=== PATIENT | male | born 1940 | race Caucasian/White ===

== ENCOUNTER 2016-09-01 14:02 | Emergency (ER) | payer MEDICARE, BC ==
[2016-09-01] MEDS ORDERED: CLINDAMYCIN 900 MG in DEXTROSE 5% IN WATER 50 ML IVPB STA ×2 (14:54)
[2016-09-01 15:29] LABS: Basophils % (A) 0 %; CH 30.4; Eosinophils # (A) 0.1 k/uL (0-0.7); Eosinophils % (A) 2 %; HCT 36.9 % (39.0-53.0); HDW 2.41; HGB 11.9 gm/dL (13.0-17.5); Luc # (Auto) 0.11; Luc % (Auto) 2; Lymphocytes # (A) 0.6 k/uL (1.0-4.8); Lymphocytes % (A) 8 %; MCH 30.8 pg (25.0-35.0); MCHC 32.4 g/dL (31.0-37.0); MCV 95.1 fL (80.0-100.0); Mean Platelet Volume 7.1; Monocytes # (A) 0.5 k/uL (0-1.0); Monocytes % (A) 7 %; Neutrophils # (A) 5.3 k/uL (1.3-7.7); Neutrophils % (A) 81 %; RBC 3.88 m/uL (4.30-5.90); RDW 13.5 % (11.5-15.5); WBC 6.5 k/uL (3.8-10.6); WBC (Perox) 6.87
[2016-09-01 15:43] LABS: Calcium 9.2 mg/dL (8.4-10.2); Potassium 4.1 mmol/L (3.5-5.1); Total Bilirubin 0.7 mg/dL (0.2-1.3); Total Protein 6.3 g/dL (6.3-8.2)
[2016-09-01 15:47] LABS: INR 1.1 (<1.1); Partial Thromboplastin Time 27.2 sec (22.0-30.0); Prothrombin Time 10.8 sec (9.0-12.0)
[2016-09-01 15:54] LABS: Creatine Kinase 79 U/L (55-170)
[2016-09-01 16:06] LABS: Creatine Kinase MB 3.5 ng/mL (0.0-2.4); Troponin I <0.012 ng/mL (0.000-0.034)
--- NOTE | 2016-09-01 17:09 | US ---
EXAMINATION TYPE: US venous doppler duplex LE BI DATE OF EXAM: 09/01/2016 4:34 PM COMPARISON: NONE CLINICAL HISTORY: US. Bilateral Leg Swelling SIDE PERFORMED: Bilateral VESSELS IMAGED: External Iliac Vein (EIV) Common Femoral Vein Deep Femoral Vein Greater Saphenous Vein * Femoral Vein Popliteal Vein Small Saphenous Vein * Proximal Calf Veins (* superficial vessels) Right Leg: Negative for DVT Left Leg: Negative for DVT There is subcutaneous soft tissue edema noted posteriorly at the level of the knee and upper calf. IMPRESSION: No evidence of acute DVT within the bilateral lower extremities imaged from the groin to the upper ca lves.
[2016-09-01 17:43] VITALS: TEMP 97.9
--- NOTE | 2016-09-01 18:18 | XR ---
EXAMINATION TYPE: XR chest 2V DATE OF EXAM: 09/01/2016 6:01 PM COMPARISON: NONE HISTORY: Leg edema. Heart failure. TECHNIQUE: Frontal and lateral views of the chest are obtained. FINDINGS: There is no heart failure nor confluent pneumonic infiltrate. There are no hilar masses. H eart is top normal in size. Costophrenic angles are clear. There are chest leads. Bony thorax appears intact. There is mild osteopenia. IMPRESSION: No active cardiac pulmonary disease. There is probably some COPD. No heart failure.
--- NOTE | 2016-09-01 18:53 | ED ---
Extremity Problem HPI - General Chief complaint: Extremity Problem,Nontraumatic Stated complaint: Swollen legs. 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 He denies any chest pain or shortness of breath no pleuritic chest pain no fever no chills. Denies any headaches no neck stiffness no abdominal pain no frequency urgency dysuria - Related Data Home Medications Medication Instructions Recorded Confirmed Atenolol [Tenormin] 25 mg PO DAILY 09/01/16 09/01/16 Carbidopa-Levodopa 25-250 mg 1 tab PO TID 09/01/16 09/01/16 [Sinemet 25-250] Donepezil [Aricept] 10 mg PO BID 09/01/16 09/01/16 Furosemide [Lasix] 20 mg PO DAILY 09/01/16 09/01/16 Lisinopril-Hctz 10-12.5 mg 1 tab PO DAILY 09/01/16 09/01/16 [Zestoretic 10-12.5] Memantine [Namenda] 10 mg PO BID 09/01/16 09/01/16 Allergies Allergy/AdvReac Type Severity Reaction Status Date / Time No Known Allergies Allergy Unverified 09/01/16 14:43 Review of Systems ROS Statement: Those systems with pertinent positive or pertinent negative responses have been documented in the HPI. ROS Other: All systems not noted in ROS Statement are negative. Past Medical History Past Medical History: Atrial Fibrillation, Heart Failure, Dementia Additional Past Medical History / Comment(s): kim cardioversion History of Any Multi-Drug Resistant Organisms: None Reported Additional Past Surgical History / Comment(s): shoulder Past Psychological History: No Psychological Hx Reported Smoking Status: Former smoker Past Alcohol Use History: None Reported, Rare Past Drug Use History: None Reported General Exam Limitations: no limitations Course Vital Signs 09/01/16 09/01/16 09/01/16 14:10 14:51 16:00 Temperature 97.9 F Pulse Rate 52 L 65 Pulse Rate [ 48 L Bilateral Dorsalis Pedis] Pulse Rate [ 50 L Bilateral Posterior Tibial] Respiratory 18 20 Rate Blood Pressure 93/53 160/70 O2 Sat by Pulse 98 97 Oximetry 09/01/16 09/01/16 17:55 19:18 Temperature Pulse Rate 65 70 Pulse Rate [ Bilateral Dorsalis Pedis] Pulse Rate [ Bilateral Posterior Tibial] Respiratory 18 14 Rate Blood Pressure 167/79 126/58 O2 Sat by Pulse 99 Oximetry EKG is a sinus bradycardia ventricular rate is 49 HI interval is 19 he 4 QRS duration is 86 QT/QTc is 472/426 review of the this EKG does not reveal any ST elevation or ST depression, this EKG is not absolutely normal EKG unfortunately I don't have any old EKG to compare it with. Had a long discussion at 1900 with the patient's his son and daughter in law explained them that the he has a cellulitis of the right leg and worsening of arterial blockage arterial occlusion on the left side at 1935 arterial studies still pending I plan to admit patient under Dr. Howe's service and consult Dr. cooley at this point patient is not agreeable for inpatient care, his family is trying to convince him for inpatient care Medical Decision Making - Lab Data Result diagrams: 09/01/16 15:02 09/01/16 15:02 Lab Results 09/01/16 09/01/16 09/01/16 Range/Units 15:02 15:02 15:02 WBC 6.5 (3.8-10.6) k/uL RBC 3.88 L (4.30-5.90) m/uL Hgb 11.9 L (13.0-17.5) gm/dL Hct 36.9 L (39.0-53.0) % MCV 95.1 (80.0-100.0) fL MCH 30.8 (25.0-35.0) pg MCHC 32.4 (31.0-37.0) g/dL RDW 13.5 (11.5-15.5) % Plt Count 227 (150-450) k/uL Neutrophils % 81 % Lymphocytes % 8 % Monocytes % 7 % Eosinophils % 2 % Basophils % 0 % Neutrophils # 5.3 (1.3-7.7) k/uL Lymphocytes # 0.6 L (1.0-4.8) k/uL Monocytes # 0.5 (0-1.0) k/uL Eosinophils # 0.1 (0-0.7) k/uL Basophils # 0.0 (0-0.2) k/uL PT (9.0-12.0) sec INR (<1.1) APTT (22.0-30.0) sec D-Dimer (<0.60) mg/L FEU Sodium 146 H (137-145) mmol/L Potassium 4.1 (3.5-5.1) mmol/L Chloride 103 (98-107) mmol/L Carbon Dioxide 30 (22-30) mmol/L Anion Gap 13 mmol/L BUN 41 H (9-20) mg/dL Creatinine 1.40 H (0.66-1.25) mg/dL Est GFR (MDRD) Af Amer 60 (>60 ml/min/1.73 sqM) Est GFR (MDRD) Non-Af 49 (>60 ml/min/1.73 sqM) Glucose 95 (74-99) mg/dL Calcium 9.2 (8.4-10.2) mg/dL Total Bilirubin 0.7 (0.2-1.3) mg/dL AST 20 (17-59) U/L ALT 22 (21-72) U/L Alkaline Phosphatase 67 (38-126) U/L Total Creatine Kinase 79 (55-170) U/L CK-MB (CK-2) 3.5 H* (0.0-2.4) ng/mL CK-MB (CK-2) Rel Index 4.4 Troponin I <0.012 (0.000-0.034) ng/mL Total Protein 6.3 (6.3-8.2) g/dL Albumin 4.2 (3.5-5.0) g/dL 09/01/16 Range/Units 15:02 WBC (3.8-10.6) k/uL RBC (4.30-5.90) m/uL Hgb (13.0-17.5) gm/dL Hct (39.0-53.0) % MCV (80.0-100.0) fL MCH (25.0-35.0) pg MCHC (31.0-37.0) g/dL RDW (11.5-15.5) % Plt Count (150-450) k/uL Neutrophils % % Lymphocytes % % Monocytes % % Eosinophils % % Basophils % % Neutrophils # (1.3-7.7) k/uL Lymphocytes # (1.0-4.8) k/uL Monocytes # (0-1.0) k/uL Eosinophils # (0-0.7) k/uL Basophils # (0-0.2) k/uL PT 10.8 (9.0-12.0) sec INR 1.1 (<1.1) APTT 27.2 (22.0-30.0) sec D-Dimer 0.20 (<0.60) mg/L FEU Sodium (137-145) mmol/L Potassium (3.5-5.1) mmol/L Chloride (98-107) mmol/L Carbon Dioxide (22-30) mmol/L Anion Gap mmol/L BUN (9-20) mg/dL Creatinine (0.66-1.25) mg/dL Est GFR (MDRD) Af Amer (>60 ml/min/1.73 sqM) Est GFR (MDRD) Non-Af (>60 ml/min/1.73 sqM) Glucose (74-99) mg/dL Calcium (8.4-10.2) mg/dL Total Bilirubin (0.2-1.3) mg/dL AST (17-59) U/L ALT (21-72) U/L Alkaline Phosphatase (38-126) U/L Total Creatine Kinase (55-170) U/L CK-MB (CK-2) (0.0-2.4) ng/mL CK-MB (CK-2) Rel Index Troponin I (0.000-0.034) ng/mL Total Protein (6.3-8.2) g/dL Albumin (3.5-5.0) g/dL Disposition Clinical Impression: Pedal edema, Cellulitis, leg, Peripheral vascular disease Disposition: ADMITTED IP TO THIS HOSP Condition: Fair Referrals: Opal Duncan MD [Primary Care Provider] - 1-2 days
[2016-09-01] MEDS ORDERED: LORazepam 1 MG TAB PO STA (19:11)
[2016-09-01 19:19] VITALS: BP 126/58; PULSE 70; RESP 14
[2016-09-01] MEDS ORDERED: NALOXONE 0.4 MG/ML 1 ML VIAL IV PRN (19:36)
[2016-09-01] MEDS ORDERED: ONDANSETRON 4 MG/2 ML VIAL IVP PRN (19:36)
[2016-09-01] MEDS ORDERED: ACETAMINOPHEN TAB 325 MG TAB PO PRN (19:36)
--- NOTE | 2016-09-07 10:44 | P.ARTDOP ---
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 Doppler waveforms: Multiphasic bilaterally throughout. Pulse volume recording: []. Pressure gradients: None noted. Ankle-brachial indices: Greater than 1 bilaterally. Toe pressures: [] on the right, [] on the left Impression: Limited but otherwise normal study.
== END 2016-09-01 20:16 | disposition other institution (70) ==
LOC: EC 14:02
DX: L03.115 Cellulitis of right lower limb (principal); I73.9 Peripheral vascular disease, unspecified; I50.9 Heart failure, unspecified; F03.90 Unspecified dementia, unspecified severity, without behavioral disturbance, psychotic disturbance, mood disturbance, and anxiety; I48.91 Unspecified atrial fibrillation; G20 Parkinson's disease; Z79.899 Other long term (current) drug therapy; Z87.891 Personal history of nicotine dependence
CPT/HCPCS: 36415; 71020; 80053; 82550; 82553; 84484; 85025; 85379; 85610; 85730; 87040; 93005; 93923; 93965; 93970; 96365; 96366; 99284

== ENCOUNTER 2016-09-28 17:02 | Emergency (ER) | payer MEDICARE, BC ==
[2016-09-28 17:06] VITALS: TEMP 97.7
[2016-09-28] MEDS ORDERED: NITROGLYCERIN OINT 1 INCH/GM PACKET TOPICAL STA (17:07)
[2016-09-28] MEDS ORDERED: FUROSEMIDE 10 MG/ML 4 ML VIAL IV STA (17:07)
--- NOTE | 2016-09-28 17:11 | ED ---
General Adult HPI - General Stated complaint: hypertension Time Seen by Provider: 09/28/16 17:02 Source: patient, EMS, RN notes reviewed Mode of arrival: EMS - History of Present Illness Initial comments: Is a 75-year-old male who apparently has a history of edema who was taken off his Lasix at some point who was sent in here for evaluation because of high blood pressure and peripheral edema. He has no personal complaints of fevers chills nausea vomiting sweats chest pain or focal weakness who was apparently out shoveling snow yesterday. He does have Alzheimer's and Parkinson's disease and is a somewhat poor historian no other information available at this time. - Related Data Home Medications Medication Instructions Recorded Confirmed Atenolol [Tenormin] 25 mg PO BID 09/01/16 09/28/16 Carbidopa-Levodopa 25-250 mg 1 tab PO TID 09/01/16 09/28/16 [Sinemet 25-250] Furosemide [Lasix] 20 mg PO DAILY 09/01/16 09/28/16 Lisinopril-Hctz 10-12.5 mg 1 tab PO DAILY 09/01/16 09/28/16 [Zestoretic 10-12.5] Memantine [Namenda] 10 mg PO BID 09/01/16 09/28/16 Triamcinolone Acetonide 1 applic TOPICAL DAILY 09/28/16 09/28/16 [Triamcinolone Acetonide] Previous Rx's Medication Instructions Recorded Furosemide [Lasix] 40 mg PO DAILY #7 tablet 09/28/16 Allergies Allergy/AdvReac Type Severity Reaction Status Date / Time No Known Allergies Allergy Verified 09/28/16 18:27 Review of Systems ROS Statement: Those systems with pertinent positive or pertinent negative responses have been documented in the HPI. ROS Other: All systems not noted in ROS Statement are negative. Limitations: ROS unobtainable due to patients medical condition Past Medical History Past Medical History: Atrial Fibrillation, Heart Failure, Dementia Additional Past Medical History / Comment(s): parkensons cardioversion. A/Ox2 is baseline mental status. History of Any Multi-Drug Resistant Organisms: None Reported Past Surgical History: No Surgical Hx Reported Additional Past Surgical History / Comment(s): shoulder Past Psychological History: No Psychological Hx Reported Smoking Status: Former smoker Past Alcohol Use History: None Reported, Rare Past Drug Use History: None Reported General Exam - General Exam Comments Initial Comments: This is a well-developed well-nourished awake alert male. General appearance: alert, in no apparent distress Head exam: Present: atraumatic, normocephalic, normal inspection Eye exam: Present: normal appearance, PERRL, EOMI. Absent: scleral icterus, conjunctival injection, periorbital swelling ENT exam: Present: normal exam, mucous membranes moist Neck exam: Present: normal inspection. Absent: tenderness, meningismus, lymphadenopathy Respiratory exam: Present: normal lung sounds bilaterally. Absent: respiratory distress, wheezes, rales, rhonchi, stridor Cardiovascular Exam: Present: regular rate, normal rhythm, normal heart sounds. Absent: systolic murmur, diastolic murmur, rubs, gallop, clicks GI/Abdominal exam: Present: soft, normal bowel sounds. Absent: distended, tenderness, guarding, rebound, rigid Extremities exam: Present: normal inspection, full ROM, normal capillary refill , pedal edema (Pila edema to the knees some localized erythema and some stasis changes.). Absent: tenderness, joint swelling, calf tenderness Back exam: Present: normal inspection Neurological exam: Present: alert, altered, CN II-XII intact. Absent: motor sensory deficit Psychiatric exam: Present: normal affect, normal mood Skin exam: Present: warm, dry, intact, normal color. Absent: rash Course Vital Signs 09/28/16 09/28/16 09/28/16 17:03 17:41 18:16 Temperature 97.7 F Pulse Rate 61 66 62 Respiratory 16 17 17 Rate Blood Pressure 229/107 219/101 222/102 O2 Sat by Pulse 98 99 94 L Oximetry 09/28/16 09/28/16 09/28/16 18:41 19:15 20:31 Temperature Pulse Rate 56 L 61 58 L Respiratory 17 17 20 Rate Blood Pressure 219/102 204/94 188/84 O2 Sat by Pulse 99 99 99 Oximetry EKG Findings - EKG Results: EKG: interpreted by TOMYD (Sinus bradycardia rate of 55. Interval to a 6 QRS duration 84 daily since QTC of 4:30/413 poor R-wave progression no acute ST-T wave elevation or depressions.) Medical Decision Making - Medical Decision Making Patient did respond to therapy and will be discharged he is to continue his current medications [Lasix again follow-up with his doctor return when necessary - Lab Data Result diagrams: 09/28/16 17:25 09/28/16 17:25 Lab Results 09/28/16 09/28/16 09/28/16 Range/Units 17:25 17:25 17:25 WBC 8.3 (3.8-10.6) k/uL RBC 4.04 L (4.30-5.90) m/uL Hgb 12.1 L (13.0-17.5) gm/dL Hct 38.2 L (39.0-53.0) % MCV 94.6 (80.0-100.0) fL MCH 30.0 (25.0-35.0) pg MCHC 31.7 (31.0-37.0) g/dL RDW 13.4 (11.5-15.5) % Plt Count 275 (150-450) k/uL Neutrophils % 77 % Lymphocytes % 13 % Monocytes % 6 % Eosinophils % 2 % Basophils % 1 % Neutrophils # 6.4 (1.3-7.7) k/uL Lymphocytes # 1.1 (1.0-4.8) k/uL Monocytes # 0.5 (0-1.0) k/uL Eosinophils # 0.2 (0-0.7) k/uL Basophils # 0.0 (0-0.2) k/uL PT (9.0-12.0) sec INR (<1.1) APTT (22.0-30.0) sec Sodium 144 (137-145) mmol/L Potassium 4.0 (3.5-5.1) mmol/L Chloride 104 (98-107) mmol/L Carbon Dioxide 29 (22-30) mmol/L Anion Gap 11 mmol/L BUN 34 H (9-20) mg/dL Creatinine 1.20 (0.66-1.25) mg/dL Est GFR (MDRD) Af Amer >60 (>60 ml/min/1.73 sqM) Est GFR (MDRD) Non-Af 59 (>60 ml/min/1.73 sqM) Glucose 94 (74-99) mg/dL Calcium 9.2 (8.4-10.2) mg/dL Magnesium 2.2 (1.6-2.3) mg/dL Total Bilirubin 0.8 (0.2-1.3) mg/dL AST 25 (17-59) U/L ALT 17 L (21-72) U/L Alkaline Phosphatase 68 (38-126) U/L Total Creatine Kinase 68 (55-170) U/L CK-MB (CK-2) 3.4 H* (0.0-2.4) ng/mL CK-MB (CK-2) Rel Index 5.0 Troponin I 0.013 (0.000-0.034) ng/mL NT-Pro-B Natriuret Pep pg/mL Total Protein 6.9 (6.3-8.2) g/dL Albumin 4.3 (3.5-5.0) g/dL 09/28/16 09/28/16 Range/Units 17:25 17:25 WBC (3.8-10.6) k/uL RBC (4.30-5.90) m/uL Hgb (13.0-17.5) gm/dL Hct (39.0-53.0) % MCV (80.0-100.0) fL MCH (25.0-35.0) pg MCHC (31.0-37.0) g/dL RDW (11.5-15.5) % Plt Count (150-450) k/uL Neutrophils % % Lymphocytes % % Monocytes % % Eosinophils % % Basophils % % Neutrophils # (1.3-7.7) k/uL Lymphocytes # (1.0-4.8) k/uL Monocytes # (0-1.0) k/uL Eosinophils # (0-0.7) k/uL Basophils # (0-0.2) k/uL PT 10.5 (9.0-12.0) sec INR 1.0 (<1.1) APTT 28.1 (22.0-30.0) sec Sodium (137-145) mmol/L Potassium (3.5-5.1) mmol/L Chloride (98-107) mmol/L Carbon Dioxide (22-30) mmol/L Anion Gap mmol/L BUN (9-20) mg/dL Creatinine (0.66-1.25) mg/dL Est GFR (MDRD) Af Amer (>60 ml/min/1.73 sqM) Est GFR (MDRD) Non-Af (>60 ml/min/1.73 sqM) Glucose (74-99) mg/dL Calcium (8.4-10.2) mg/dL Magnesium (1.6-2.3) mg/dL Total Bilirubin (0.2-1.3) mg/dL AST (17-59) U/L ALT (21-72) U/L Alkaline Phosphatase (38-126) U/L Total Creatine Kinase (55-170) U/L CK-MB (CK-2) (0.0-2.4) ng/mL CK-MB (CK-2) Rel Index Troponin I (0.000-0.034) ng/mL NT-Pro-B Natriuret Pep 1620 pg/mL Total Protein (6.3-8.2) g/dL Albumin (3.5-5.0) g/dL - Radiology Data Radiology results: report reviewed (Review the imaging shows no acute findings.) , image reviewed Disposition Clinical Impression: Hypertensive urgency, Congestive cardiac failure Disposition: HOME SELF-CARE Condition: Good Instructions: Hypertension (ED), Leg Edema (ED), Heart Failure (ED) Prescriptions: Furosemide [Lasix] 40 mg PO DAILY #7 tablet
[2016-09-28 17:35] LABS: Basophils % (A) 1 %; CH 30.1; Eosinophils # (A) 0.2 k/uL (0-0.7); Eosinophils % (A) 2 %; HCT 38.2 % (39.0-53.0); HDW 2.61; HGB 12.1 gm/dL (13.0-17.5); Luc # (Auto) 0.11; Luc % (Auto) 1; Lymphocytes # (A) 1.1 k/uL (1.0-4.8); Lymphocytes % (A) 13 %; MCHC 31.7 g/dL (31.0-37.0); MCV 94.6 fL (80.0-100.0); Mean Platelet Volume 7.1; Monocytes # (A) 0.5 k/uL (0-1.0); Monocytes % (A) 6 %; Neutrophils # (A) 6.4 k/uL (1.3-7.7); Neutrophils % (A) 77 %; RBC 4.04 m/uL (4.30-5.90); RDW 13.4 % (11.5-15.5); WBC 8.3 k/uL (3.8-10.6); WBC (Perox) 8.25
[2016-09-28 17:46] LABS: ALT 17 U/L (21-72); AST 25 U/L (17-59); Alkaline Phosphatase 68 U/L (38-126); Anion Gap 11 mmol/L; Blood Urea Nitrogen 34 mg/dL (9-20); Calcium 9.2 mg/dL (8.4-10.2); Carbon Dioxide 29 mmol/L (22-30); Chloride 104 mmol/L (98-107); Glucose 94 mg/dL (74-99); Magnesium 2.2 mg/dL (1.6-2.3); Non-African American GFR(MDRD) 59 (>60 ml/min/1.73 sqM); Sodium 144 mmol/L (137-145); Total Bilirubin 0.8 mg/dL (0.2-1.3); Total Protein 6.9 g/dL (6.3-8.2)
[2016-09-28 17:50] LABS: Partial Thromboplastin Time 28.1 sec (22.0-30.0); Prothrombin Time 10.5 sec (9.0-12.0)
[2016-09-28 18:15] LABS: Troponin I 0.013 ng/mL (0.000-0.034)
[2016-09-28 18:16] LABS: Creatine Kinase MB 3.4 ng/mL (0.0-2.4)
--- NOTE | 2016-09-28 18:18 | XR ---
EXAMINATION TYPE: XR chest 2V DATE OF EXAM: 09/28/2016 6:07 PM COMPARISON: 09/01/2016 HISTORY: Difficulty breathing TECHNIQUE: Frontal and lateral views of the chest are obtained. FINDINGS: There is no heart failure nor confluent pneumonic infiltrate. There are small calcified gr anulomata in the right lung. There are no hilar masses. Heart size is normal. There is no pleural eff usion. Bony thorax appears intact. IMPRESSION: No active cardiopulmonary disease. No change compared to old exam.
[2016-09-28] MEDS ORDERED: ENALAPRILAT 1.25 MG/ML 1 ML VIAL IVP STA (18:20)
[2016-09-28] MEDS ORDERED: hydrALAZINE HCL 20 MG/ML 1 ML VIAL IVP STA (19:40)
[2016-09-28 20:32] VITALS: BP 188/84; PULSE 58; RESP 20
== END 2016-09-28 21:53 | disposition home or self-care (01) ==
LOC: EC 17:02
DX: I11.0 Hypertensive heart disease with heart failure (principal); I50.9 Heart failure, unspecified; R60.0 Localized edema; I48.91 Unspecified atrial fibrillation; G30.9 Alzheimer's disease, unspecified; F02.80 Dementia in other diseases classified elsewhere, unspecified severity, without behavioral disturbance, psychotic disturbance, mood disturbance, and anxiety; G20 Parkinson's disease; Z87.891 Personal history of nicotine dependence; Z79.899 Other long term (current) drug therapy
CPT/HCPCS: 36415; 93005; 83880; 80053; 82550; 82553; 83735; 84484; 85025; 85610; 85730; 71020; 99284; 96374; 96375 ×2; J0360; J1940

== ENCOUNTER 2016-10-18 17:34 | Emergency (ER) | payer MEDICARE, BC ==
--- NOTE | 2016-10-18 18:50 | XR ---
EXAMINATION TYPE: XR Hip RT and AP Pelvis DATE OF EXAM: 10/18/2016 6:39 PM COMPARISON: NONE HISTORY: Right hip pain after a fall TECHNIQUE: A single AP view of the pelvis is obtained. Two views of the right hip are obtained. FINDINGS: The pelvic ring appears intact. Proximal right femur and hip joint appear intact. There is no evidence of a fracture. Sacroiliac joints are intact.. IMPRESSION: No acute abnormality of the pelvis and right hip. Mild bilateral acetabular spurring.
--- NOTE | 2016-10-18 18:59 | ED ---
Fall HPI - General Chief Complaint: Fall Stated Complaint: Fall/Hip Injury Time Seen by Provider: 10/18/16 18:18 Source: patient, EMS, RN notes reviewed Mode of arrival: EMS Limitations: no limitations - History of Present Illness Initial Comments: 75-year-old male presents emergency Department chief complaint fall. Patient fell on Monday in the toilet. Patient states he became dizzy and blacked out. Patient states that he's had right hip pain ever since states that he cannot weight-bear on the right side. Patient had no head injury. Patient states that his been having on and off dizziness over the last week. Patient denies any chest pain or shortness of breath. Denies any nausea vomiting. Patient denies any previous hip injury. Patient's had a history of hypertension, CHF, Parkinson's. - Related Data Home Medications Medication Instructions Recorded Confirmed Atenolol [Tenormin] 25 mg PO DAILY 09/01/16 10/18/16 Carbidopa-Levodopa 25-250 mg 1 tab PO TID 09/01/16 10/18/16 [Sinemet 25-250] Lisinopril-Hctz 10-12.5 mg 1 tab PO DAILY 09/01/16 10/18/16 [Zestoretic 10-12.5] Memantine [Namenda] 10 mg PO BID 09/01/16 10/18/16 Donepezil [Aricept] 10 mg PO DAILY 10/18/16 10/18/16 Furosemide [Lasix] 80 mg PO DAILY 10/18/16 10/18/16 Allergies Allergy/AdvReac Type Severity Reaction Status Date / Time No Known Allergies Allergy Verified 10/18/16 17:58 Review of Systems ROS Statement: Those systems with pertinent positive or pertinent negative responses have been documented in the HPI. ROS Other: All systems not noted in ROS Statement are negative. Past Medical History Past Medical History: Atrial Fibrillation, Heart Failure, Dementia Additional Past Medical History / Comment(s): parkensons cardioversion. A/Ox2 is baseline mental status. History of Any Multi-Drug Resistant Organisms: None Reported Past Surgical History: No Surgical Hx Reported Additional Past Surgical History / Comment(s): shoulder Past Psychological History: No Psychological Hx Reported Smoking Status: Former smoker Past Alcohol Use History: None Reported, Rare Past Drug Use History: None Reported General Exam Limitations: no limitations General appearance: alert, in no apparent distress Head exam: Present: atraumatic, normocephalic, normal inspection Respiratory exam: Present: normal lung sounds bilaterally. Absent: respiratory distress, wheezes, rales, rhonchi, stridor Cardiovascular Exam: Present: regular rate, normal rhythm, normal heart sounds. Absent: systolic murmur, diastolic murmur, rubs, gallop, clicks GI/Abdominal exam: Present: soft, normal bowel sounds. Absent: distended, tenderness, guarding, rebound, rigid Extremities exam: Present: other (Bleeding to the right hip pain with log rolling of the right leg there is multiple varicosities noted of the lower extremity below pulses are palpable bilateral +2 no shortening or rotation) Neurological exam: Present: alert, oriented X3, CN II-XII intact. Absent: motor sensory deficit, reflexes normal Course Vital Signs 10/18/16 17:40 Temperature 97.9 F Pulse Rate 51 L Respiratory 18 Rate Blood Pressure 145/67 O2 Sat by Pulse 100 Oximetry Medical Decision Making - Medical Decision Making 75-year-old male presented for fall. Patient is right acetabular fracture. Case discussed with Daniel Rucker secondary to acetabular fracture not handled by on-call orthopedics. Patient case was discussed with Daniel Rucker will accept transfer. - Lab Data Result diagrams: 10/18/16 18:53 10/18/16 18:53 Lab Results 10/18/16 10/18/16 10/18/16 Range/Units 18:53 18:53 18:53 WBC 9.5 (3.8-10.6) k/uL RBC 4.21 L (4.30-5.90) m/uL Hgb 12.9 L (13.0-17.5) gm/dL Hct 39.4 (39.0-53.0) % MCV 93.8 (80.0-100.0) fL MCH 30.8 (25.0-35.0) pg MCHC 32.8 (31.0-37.0) g/dL RDW 13.4 (11.5-15.5) % Plt Count 227 (150-450) k/uL Neutrophils % 82 % Lymphocytes % 8 % Monocytes % 7 % Eosinophils % 2 % Basophils % 0 % Neutrophils # 7.8 H (1.3-7.7) k/uL Lymphocytes # 0.8 L (1.0-4.8) k/uL Monocytes # 0.6 (0-1.0) k/uL Eosinophils # 0.1 (0-0.7) k/uL Basophils # 0.0 (0-0.2) k/uL PT 10.1 (9.0-12.0) sec INR 1.0 (<1.1) APTT 24.8 (22.0-30.0) sec Sodium 146 H (137-145) mmol/L Potassium 3.8 (3.5-5.1) mmol/L Chloride 97 L (98-107) mmol/L Carbon Dioxide 36 H (22-30) mmol/L Anion Gap 13 mmol/L BUN 88 H* (9-20) mg/dL Creatinine 2.48 H (0.66-1.25) mg/dL Est GFR (MDRD) Af Amer 31 (>60 ml/min/1.73 sqM) Est GFR (MDRD) Non-Af 26 (>60 ml/min/1.73 sqM) Glucose 107 H (74-99) mg/dL Calcium 9.7 (8.4-10.2) mg/dL Total Bilirubin 1.0 (0.2-1.3) mg/dL AST 20 (17-59) U/L ALT 12 L (21-72) U/L Alkaline Phosphatase 71 (38-126) U/L Troponin I (0.000-0.034) ng/mL Total Protein 7.3 (6.3-8.2) g/dL Albumin 4.4 (3.5-5.0) g/dL 10/18/16 Range/Units 18:53 WBC (3.8-10.6) k/uL RBC (4.30-5.90) m/uL Hgb (13.0-17.5) gm/dL Hct (39.0-53.0) % MCV (80.0-100.0) fL MCH (25.0-35.0) pg MCHC (31.0-37.0) g/dL RDW (11.5-15.5) % Plt Count (150-450) k/uL Neutrophils % % Lymphocytes % % Monocytes % % Eosinophils % % Basophils % % Neutrophils # (1.3-7.7) k/uL Lymphocytes # (1.0-4.8) k/uL Monocytes # (0-1.0) k/uL Eosinophils # (0-0.7) k/uL Basophils # (0-0.2) k/uL PT (9.0-12.0) sec INR (<1.1) APTT (22.0-30.0) sec Sodium (137-145) mmol/L Potassium (3.5-5.1) mmol/L Chloride (98-107) mmol/L Carbon Dioxide (22-30) mmol/L Anion Gap mmol/L BUN (9-20) mg/dL Creatinine (0.66-1.25) mg/dL Est GFR (MDRD) Af Amer (>60 ml/min/1.73 sqM) Est GFR (MDRD) Non-Af (>60 ml/min/1.73 sqM) Glucose (74-99) mg/dL Calcium (8.4-10.2) mg/dL Total Bilirubin (0.2-1.3) mg/dL AST (17-59) U/L ALT (21-72) U/L Alkaline Phosphatase (38-126) U/L Troponin I 0.034 (0.000-0.034) ng/mL Total Protein (6.3-8.2) g/dL Albumin (3.5-5.0) g/dL 10/18/16 20:04 EKG performed at 18:58 sinus bradycardia with a rate of 50, DC interval 180, QRS duration 84, QT/QTC 454/413 Disposition Clinical Impression: Fall, Right acetabular fracture, Fracture of right inferior pubic ramus, Dehydration, Acute renal injury Disposition: OTHER INSTITUTION NOT DEFINED Condition: Stable - Out of Hospital Transfer - Req. Specs Out of Hospital Transfer - Requested Specifics: Other Emergency Center ( Daniel Rucker)
[2016-10-18 19:01] LABS: Basophils % (A) 0 %; CH 30.8; CHCM 32.9; Eosinophils # (A) 0.1 k/uL (0-0.7); Eosinophils % (A) 2 %; HCT 39.4 % (39.0-53.0); HDW 2.26; HGB 12.9 gm/dL (13.0-17.5); Luc # (Auto) 0.13; Luc % (Auto) 1; Lymphocytes # (A) 0.8 k/uL (1.0-4.8); Lymphocytes % (A) 8 %; MCH 30.8 pg (25.0-35.0); MCHC 32.8 g/dL (31.0-37.0); MCV 93.8 fL (80.0-100.0); Mean Platelet Volume 8.3; Monocytes # (A) 0.6 k/uL (0-1.0); Monocytes % (A) 7 %; Neutrophils # (A) 7.8 k/uL (1.3-7.7); Neutrophils % (A) 82 %; RBC 4.21 m/uL (4.30-5.90); RDW 13.4 % (11.5-15.5); WBC 9.5 k/uL (3.8-10.6); WBC (Perox) 10.42
[2016-10-18 19:12] LABS: Calcium 9.7 mg/dL (8.4-10.2); Potassium 3.8 mmol/L (3.5-5.1); Total Protein 7.3 g/dL (6.3-8.2)
[2016-10-18 19:23] LABS: Partial Thromboplastin Time 24.8 sec (22.0-30.0); Prothrombin Time 10.1 sec (9.0-12.0)
--- NOTE | 2016-10-18 19:57 | CT ---
EXAMINATION TYPE: CT hip RT wo con DATE OF EXAM: 10/18/2016 7:41 PM COMPARISON: NONE HISTORY: Right sided hip pain post fall CT DLP: 528 mGycm Automated exposure control for dose reduction was used. FINDINGS: Multiple axial sections were obtained from the top of the iliac crest to the subtrochanteric right fe mur with no contrast. There is a nondisplaced hairline fracture of the posterior acetabular labrum. The proximal femur is i ntact. The sacroiliac joints appear normal. There is evidence of a nondisplaced fracture of the right inferior pubic ramus. The superior pubic ra mus is intact. IMPRESSION: NONDISPLACED POSTERIOR ACETABULAR LABRAL FRACTURE. NONDISPLACED RIGHT INFERIOR PUBIC RAMUS FRACTURE. NO EVIDENCE OF A FEMORAL FRACTURE. THERE IS NOTED A LARGE AMOUNT OF FECAL MATERIAL IN THE RECTUM CONSISTENT WITH CONSTIPATION.
[2016-10-18] MEDS ORDERED: HYDROcodone/APAP 5-325MG 1 EACH TAB PO STA (19:59)
[2016-10-18 20:29] VITALS: BP 197/85; PULSE 57; RESP 14; TEMP 96.8
== END 2016-10-18 20:54 | disposition short-term general hospital (02) ==
LOC: EC 17:34
DX: S32.591A Other specified fracture of right pubis, initial encounter for closed fracture (principal); S32.491A Other specified fracture of right acetabulum, initial encounter for closed fracture; S37.009A Unspecified injury of unspecified kidney, initial encounter; E86.0 Dehydration; I11.0 Hypertensive heart disease with heart failure; I50.9 Heart failure, unspecified; F03.90 Unspecified dementia, unspecified severity, without behavioral disturbance, psychotic disturbance, mood disturbance, and anxiety; G20 Parkinson's disease; I48.91 Unspecified atrial fibrillation; Z87.891 Personal history of nicotine dependence; Z79.899 Other long term (current) drug therapy; W07.XXXA Fall from chair, initial encounter; Y92.89 Other specified places as the place of occurrence of the external cause
CPT/HCPCS: 36415; 73502; 80053; 84484; 85025; 85610; 85730; 93005; 99285

== ENCOUNTER 2016-12-12 14:56 | Inpatient (IN) | payer MEDICARE, BC ==
[2016-12-12] MEDS ORDERED: FUROSEMIDE 10 MG/ML 4 ML VIAL IV STA (15:52)
--- NOTE | 2016-12-12 15:55 | ED ---
General Adult HPI - General Chief complaint: Extremity Problem,Nontraumatic Stated complaint: Swelling/Legs Time Seen by Provider: 12/12/16 15:09 Source: patient, RN notes reviewed Mode of arrival: EMS Limitations: altered mental status - History of Present Illness Initial comments: Patient is a pleasant 76-year-old male presenting to the emergency department with leg edema. Patient is a poor historian and does not offer much more information. Patient denies dyspnea. Patient denies chest pain. Unclear patient has a history of similar symptoms previously. Patient reportedly saw his primary care physician earlier today and was sent to the emergency - Related Data Home Medications Medication Instructions Recorded Confirmed Atenolol [Tenormin] 25 mg PO DAILY 09/01/16 12/12/16 Lisinopril-Hctz 10-12.5 mg 1 tab PO DAILY 09/01/16 12/12/16 [Zestoretic 10-12.5] Memantine [Namenda] 10 mg PO BID 09/01/16 12/12/16 Donepezil [Aricept] 10 mg PO HS 10/18/16 12/12/16 Furosemide [Lasix] 20 mg PO DAILY 12/12/16 12/12/16 Allergies Allergy/AdvReac Type Severity Reaction Status Date / Time No Known Allergies Allergy Verified 12/12/16 15:45 Review of Systems ROS Statement: Those systems with pertinent positive or pertinent negative responses have been documented in the HPI. ROS Other: All systems not noted in ROS Statement are negative. Constitutional: Denies: fever Eyes: Denies: eye pain ENT: Denies: ear pain Respiratory: Denies: cough, dyspnea Cardiovascular: Reports: edema. Denies: chest pain Endocrine: Denies: fatigue Gastrointestinal: Denies: abdominal pain Genitourinary: Denies: dysuria Musculoskeletal: Denies: back pain Skin: Denies: rash Neurological: Denies: headache Past Medical History Past Medical History: Atrial Fibrillation, Heart Failure, Dementia Additional Past Medical History / Comment(s): parkensons cardioversion. A/Ox2 is baseline mental status. History of Any Multi-Drug Resistant Organisms: None Reported Past Surgical History: No Surgical Hx Reported Additional Past Surgical History / Comment(s): shoulder Past Psychological History: No Psychological Hx Reported Smoking Status: Former smoker Past Alcohol Use History: None Reported, Rare Past Drug Use History: None Reported General Exam Limitations: no limitations General appearance: alert, in no apparent distress Head exam: Present: atraumatic Eye exam: Present: normal appearance, PERRL ENT exam: Present: normal oropharynx Neck exam: Present: normal inspection Respiratory exam: Present: normal lung sounds bilaterally Cardiovascular Exam: Present: bradycardia, normal heart sounds GI/Abdominal exam: Present: soft. Absent: tenderness Extremities exam: Present: normal capillary refill, pedal edema (Bilateral +3. There is dark erythematous discoloration that is blanchable right greater than left foot. Cap refill less than 2 seconds.). Absent: calf tenderness Back exam: Present: normal inspection Neurological exam: Present: alert Psychiatric exam: Present: normal affect, normal mood Skin exam: Absent: rash Course Vital Signs 12/12/16 12/12/16 12/12/16 14:59 16:13 16:40 Temperature 97.5 F L Pulse Rate 56 L 78 57 L Respiratory 18 18 Rate Blood Pressure 203/83 109/59 200/87 O2 Sat by Pulse 99 96 Oximetry EKG Findings - EKG Comments: EKG Findings:: Sinus rhythm at 50. QRS 80. QT 444. QTC 404. Normal axis. Septal Q waves. No acute ST change. Medical Decision Making - Lab Data Result diagrams: 12/12/16 15:31 12/12/16 15:31 Lab Results 12/12/16 12/12/16 12/12/16 Range/Units 15:31 15:31 15:31 WBC 5.9 (3.8-10.6) k/uL RBC 3.75 L (4.30-5.90) m/uL Hgb 10.9 L (13.0-17.5) gm/dL Hct 35.5 L (39.0-53.0) % MCV 94.7 (80.0-100.0) fL MCH 29.1 (25.0-35.0) pg MCHC 30.7 L (31.0-37.0) g/dL RDW 14.9 (11.5-15.5) % Plt Count 207 (150-450) k/uL Neutrophils % 71 % Lymphocytes % 18 % Monocytes % 7 % Eosinophils % 1 % Basophils % 1 % Neutrophils # 4.2 (1.3-7.7) k/uL Lymphocytes # 1.1 (1.0-4.8) k/uL Monocytes # 0.4 (0-1.0) k/uL Eosinophils # 0.1 (0-0.7) k/uL Basophils # 0.0 (0-0.2) k/uL Hypochromasia Slight PT (9.0-12.0) sec INR (<1.1) APTT (22.0-30.0) sec Sodium 148 H (137-145) mmol/L Potassium 4.0 (3.5-5.1) mmol/L Chloride 108 H (98-107) mmol/L Carbon Dioxide 32 H (22-30) mmol/L Anion Gap 8 mmol/L BUN 38 H (9-20) mg/dL Creatinine 1.30 H (0.66-1.25) mg/dL Est GFR (MDRD) Af Amer >60 (>60 ml/min/1.73 sqM) Est GFR (MDRD) Non-Af 54 (>60 ml/min/1.73 sqM) Glucose 86 (74-99) mg/dL Calcium 8.9 (8.4-10.2) mg/dL Total Bilirubin 0.4 (0.2-1.3) mg/dL AST 16 L (17-59) U/L ALT 18 L (21-72) U/L Alkaline Phosphatase 100 (38-126) U/L Total Creatine Kinase 39 L (55-170) U/L CK-MB (CK-2) 2.2 (0.0-2.4) ng/mL CK-MB (CK-2) Rel Index 5.6 Troponin I <0.012 (0.000-0.034) ng/mL NT-Pro-B Natriuret Pep pg/mL Total Protein 6.2 L (6.3-8.2) g/dL Albumin 3.6 (3.5-5.0) g/dL 12/12/16 12/12/16 Range/Units 15:31 15:31 WBC (3.8-10.6) k/uL RBC (4.30-5.90) m/uL Hgb (13.0-17.5) gm/dL Hct (39.0-53.0) % MCV (80.0-100.0) fL MCH (25.0-35.0) pg MCHC (31.0-37.0) g/dL RDW (11.5-15.5) % Plt Count (150-450) k/uL Neutrophils % % Lymphocytes % % Monocytes % % Eosinophils % % Basophils % % Neutrophils # (1.3-7.7) k/uL Lymphocytes # (1.0-4.8) k/uL Monocytes # (0-1.0) k/uL Eosinophils # (0-0.7) k/uL Basophils # (0-0.2) k/uL Hypochromasia PT 10.0 (9.0-12.0) sec INR 1.0 (<1.1) APTT 24.7 (22.0-30.0) sec Sodium (137-145) mmol/L Potassium (3.5-5.1) mmol/L Chloride (98-107) mmol/L Carbon Dioxide (22-30) mmol/L Anion Gap mmol/L BUN (9-20) mg/dL Creatinine (0.66-1.25) mg/dL Est GFR (MDRD) Af Amer (>60 ml/min/1.73 sqM) Est GFR (MDRD) Non-Af (>60 ml/min/1.73 sqM) Glucose (74-99) mg/dL Calcium (8.4-10.2) mg/dL Total Bilirubin (0.2-1.3) mg/dL AST (17-59) U/L ALT (21-72) U/L Alkaline Phosphatase (38-126) U/L Total Creatine Kinase (55-170) U/L CK-MB (CK-2) (0.0-2.4) ng/mL CK-MB (CK-2) Rel Index Troponin I (0.000-0.034) ng/mL NT-Pro-B Natriuret Pep 1560 pg/mL Total Protein (6.3-8.2) g/dL Albumin (3.5-5.0) g/dL Disposition Clinical Impression: Leg edema, Right-sided heart failure Disposition: ADMITTED IP TO THIS HOSP
[2016-12-12 16:12] LABS: Basophils % (A) 1 %; CH 29.1; CHCM 30.9; Eosinophils # (A) 0.1 k/uL (0-0.7); Eosinophils % (A) 1 %; HCT 35.5 % (39.0-53.0); HDW 2.38; HGB 10.9 gm/dL (13.0-17.5); Hypochromasia Slight; Luc # (Auto) 0.11; Luc % (Auto) 2; Lymphocytes # (A) 1.1 k/uL (1.0-4.8); Lymphocytes % (A) 18 %; MCH 29.1 pg (25.0-35.0); MCHC 30.7 g/dL (31.0-37.0); MCV 94.7 fL (80.0-100.0); Mean Platelet Volume 7.3; Monocytes # (A) 0.4 k/uL (0-1.0); Monocytes % (A) 7 %; Neutrophils # (A) 4.2 k/uL (1.3-7.7); Neutrophils % (A) 71 %; RBC 3.75 m/uL (4.30-5.90); RDW 14.9 % (11.5-15.5); WBC 5.9 k/uL (3.8-10.6); WBC (Perox) 6.33
--- NOTE | 2016-12-12 16:12 | XR ---
EXAMINATION TYPE: XR chest 2V DATE OF EXAM: 12/12/2016 4:04 PM COMPARISON: NONE INDICATION: Difficulty breathing TECHNIQUE: Single frontal view of the chest is obtained. FINDINGS: The heart size is normal. The pulmonary vasculature is normal. Small posterior pleural effusion is likely present. IMPRESSION: 1. Small posterior pleural effusion
[2016-12-12 16:17] LABS: ALT 18 U/L (21-72); AST 16 U/L (17-59); Alkaline Phosphatase 100 U/L (38-126); Anion Gap 8 mmol/L; Blood Urea Nitrogen 38 mg/dL (9-20); Calcium 8.9 mg/dL (8.4-10.2); Carbon Dioxide 32 mmol/L (22-30); Chloride 108 mmol/L (98-107); Glucose 86 mg/dL (74-99); Non-African American GFR(MDRD) 54 (>60 ml/min/1.73 sqM); Sodium 148 mmol/L (137-145); Total Bilirubin 0.4 mg/dL (0.2-1.3); Total Protein 6.2 g/dL (6.3-8.2)
[2016-12-12 16:24] LABS: Partial Thromboplastin Time 24.7 sec (22.0-30.0)
[2016-12-12 16:33] LABS: Creatine Kinase 39 U/L (55-170)
[2016-12-12] MEDS ORDERED: NITROGLYCERIN OINT 1 INCH/GM PACKET TOPICAL STA ×2 (16:42→18:09)
[2016-12-12 16:45] LABS: Creatine Kinase MB 2.2 ng/mL (0.0-2.4); Troponin I <0.012 ng/mL (0.000-0.034)
[2016-12-12] MEDS ORDERED: ASPIRIN 325 MG TAB PO STA (17:14)
[2016-12-12] MEDS ORDERED: HYDROcodone/APAP 5-325MG 1 EACH TAB PO STA (17:31)
[2016-12-12] MEDS: NITROGLYCERIN OINT 1 INCH/GM PACKET TOPICAL SCH (21:01)
[2016-12-12] MEDS: MEMANTINE 10 MG TAB PO SCH (21:02)
[2016-12-12] MEDS: DONEPEZIL 10 MG TAB PO SCH (21:02)
[2016-12-12] MEDS: FUROSEMIDE 10 MG/ML 4 ML VIAL IV SCH (23:52)
[2016-12-13] MEDS: FUROSEMIDE 10 MG/ML 4 ML VIAL IV SCH ×2 (08:38→15:51)
[2016-12-13] MEDS: NITROGLYCERIN OINT 1 INCH/GM PACKET TOPICAL SCH (08:39)
[2016-12-13] MEDS: MEMANTINE 10 MG TAB PO SCH ×2 (08:39→21:37)
[2016-12-13] MEDS: ATENOLOL 25 MG TAB PO SCH (08:39)
[2016-12-13] MEDS: LISINOPRIL-HCTZ 10-12.5 MG 1 EACH TAB PO SCH (08:39)
[2016-12-13] MEDS ORDERED: ASPIRIN 325 MG TAB PO SCH (09:00)
--- NOTE | 2016-12-13 11:35 | P.CRDCN ---
History of Present Illness Consult date: 12/13/16 Requesting physician: Heide Mcgrath Consult reason: congestive heart failure Chief complaint: Leg edema History of present illness: This is a 76-year-old gentleman with history of hypertension, paroxysmal atrial fibrillation, dementia, Parkinson's, who presents to the hospital with symptoms of bilateral leg swelling. Patient does provide somewhat of a history, however most of the history was extracted from the medical record. Patient denies any symptoms of shortness of breath, lying flat at the time of my examination in no acute distress. He denies any chest pain, no palpitations. EKG on admission showed a sinus bradycardia with no acute changes. Chest x-ray reveals a small posterior pleural effusion. Upon review of prior visits, it appears that the patient had a venous Doppler study performed in August of this year which was negative for any DVT. He was noted at that time to have lower extremity edema. He also had an echocardiogram with Doppler study performed in April of last year which revealed an ejection fraction of 55-60%. Laboratory data, hemoglobin 10.9, platelet count 207, potassium 4.0, BUN 38, creatinine 1.3. Troponins 0.012, 0.013, 0.034. BNP level 1560. Blood pressure on arrival to emergency room 203/83. Blood pressure this morning 190/90. The patient was initiated on IV Lasix in the emergency room, his weight today is down 2 kg from admission. Continues to have 1+ bilateral peripheral edema, significant redness with decreased pulse noted in the right foot. Past Medical History Past Medical History: Atrial Fibrillation, Heart Failure, Dementia Additional Past Medical History / Comment(s): parkinsons cardioversion. A/Ox2 is baseline mental status. History of Any Multi-Drug Resistant Organisms: None Reported Past Surgical History: No Surgical Hx Reported Additional Past Surgical History / Comment(s): shoulder Past Anesthesia/Blood Transfusion Reactions: No Reported Reaction Past Psychological History: No Psychological Hx Reported Smoking Status: Former smoker Past Alcohol Use History: None Reported, Rare Past Drug Use History: None Reported Medications and Allergies Home Medications Medication Instructions Recorded Confirmed Type Atenolol [Tenormin] 25 mg PO DAILY 09/01/16 12/12/16 History Lisinopril-Hctz 10-12.5 mg 1 tab PO DAILY 09/01/16 12/12/16 History [Zestoretic 10-12.5] Memantine [Namenda] 10 mg PO BID 09/01/16 12/12/16 History Donepezil [Aricept] 10 mg PO HS 10/18/16 12/12/16 History Furosemide [Lasix] 20 mg PO DAILY 12/12/16 12/12/16 History Allergies Allergy/AdvReac Type Severity Reaction Status Date / Time No Known Allergies Allergy Verified 12/12/16 15:45 Physical Exam Vitals: Vital Signs Temp Pulse Pulse Resp BP BP Pulse Ox 12/13/16 08:00 60 18 12/13/16 07:56 98 F 60 18 190/92 99 12/13/16 03:48 96.9 F L 54 L 18 180/94 100 12/13/16 00:00 96.9 F L 59 L 18 170/79 98 12/12/16 20:00 96.9 F L 55 L 18 189/93 100 12/12/16 18:59 97.2 F L 62 18 177/88 97 12/12/16 18:38 60 182/90 12/12/16 18:34 96.9 F L 55 L 18 189/93 100 12/12/16 17:49 97.2 F L 61 18 235/98 100 12/12/16 17:19 84 200/91 Intake and Output 12/12/16 12/13/16 12/13/16 22:59 06:59 14:59 Intake Total 150 120 Balance 150 120 Intake: Oral 150 120 Other: Voiding Method Incontinent Incontinent Incontinent # Voids 1 1 Weight 71.214 kg 69 kg PHYSICAL EXAMINATION: HEENT: Head is atraumatic, normocephalic. Pupils equal, round. Neck is supple. There is no elevated jugular venous pressure. HEART EXAMINATION: S1 and S2 irregularly irregular CHEST EXAMINATION: Lungs are clear with diminished air entry to bilateral bases. ABDOMEN: Soft, nontender. Bowel sounds are heard. No organomegaly noted. EXTREMITIES:[ 1+ peripheral pulses to the left lower extremity with 1+ peripheral edema, faint pulses to the right lower extremity with evidence of redness to the right foot. NEUROLOGIC patient is awake, alert mildly confused. . Results 12/12/16 15:31 12/12/16 15:31 Cardiac Enzymes 12/12/16 12/13/16 Range/Units 21:05 06:41 Troponin I 0.013 0.034 (0.000-0.034) ng/mL Current Medications Generic Name Dose Route Start Last Admin Trade Name Lelo PRN Reason Stop Dose Admin Aspirin 325 mg 12/13/16 09:00 12/13/16 08:39 Aspirin PO 325 mg DAILY JASWANT Administration Atenolol 25 mg 12/13/16 09:00 12/13/16 08:39 Tenormin PO 25 mg DAILY JASWANT Administration Donepezil HCl 10 mg 12/12/16 21:00 12/12/16 21:02 Aricept PO 10 mg HS JASWANT Administration Furosemide 40 mg 12/13/16 00:00 12/13/16 08:38 Lasix IV 40 mg Q8HR JASWANT Administration Lisinopril/HCTZ 1 each 12/13/16 09:00 12/13/16 08:39 Zestoretic 10-12.5 PO 1 each DAILY JASWANT Administration Memantine 10 mg 12/12/16 21:00 12/13/16 08:39 Namenda PO 10 mg BID JASWANT Administration Sodium Chloride 10 ml 12/12/16 21:00 12/13/16 08:39 Saline Flush IV 10 ml BID JASWANT Administration Intake and Output 12/12/16 12/13/16 12/13/16 22:59 06:59 14:59 Intake Total 150 120 Balance 150 120 Intake: Oral 150 120 Other: Voiding Method Incontinent Incontinent Incontinent # Voids 1 1 Weight 71.214 kg 69 kg EKG Interpretations (text) EKG shows sinus bradycardia. Assessment and Plan Plan: Assessment and plan #1 symptoms of bilateral lower leg swelling with evidence of mild congestive cardiac failure, likely diastolic in nature. Echo performed April last year revealed normal left ventricular systolic function. BNP level 1560. Currently on IV Lasix. #2 uncontrolled hypertension #3 dementia #4 paroxysmal atrial fibrillation with prior cardioversion, not on anticoagulation. #5 Parkinson's Plan We will request a repeat echocardiogram with Doppler study. Add Norvasc to the patient's medication regime for more optimal blood pressure control. We will continue to monitor for any atrial fibrillation, if we do note some atrial fibrillation, patient will require anticoagulation for stroke prevention. Continue IV Lasix. Recommend a vascular consult. Further recommendations to follow. DNP note has been reviewed, I agree with a documented findings and plan of care. Patient was seen and examined.
--- NOTE | 2016-12-13 13:11 | P.GSCN ---
History of Present Illness History of present illness: 76 old white male, patient came to the emergency room with history of bilateral leg swelling, patient has history of congestive heart failure I was consulted for vascular evaluation there was some concern about the right foot there is noted. Some congestion and cyanosis of the toes on the right foot there is also some swelling of the left lower extremity patient had a ultrasound of the leg in August which was negative for DVT Medical history history of atrial fibrillation, Parkinson disease, history of dementia, history of shortness of breath when laying flat is no history of any pain to the extremity Neck examination neck is supple no bruit appreciated Chest clear auscultation Abdomen soft nontender Vascular examination brachial radial pulses are palpable bilateral femorals are palpable bilateral, right popliteal is palpable, patient has a Doppler signal of the anterior tibial posterior tibial on the right foot and also on the left foot distal dorsal pedis pulse by Doppler no ischemic ulceration noted patient has some cyanosis of the right foot with some Brown induration Impression is history of dementia Parkinson's will history of atrial fibrillation at this point patient has some chronic peripheral vascular disease involving below the knee bilateral patient has no rest pain or tissue loss I will discuss with the and the family for further management we'll follow with you Past Medical History Past Medical History: Atrial Fibrillation, Heart Failure, Dementia Additional Past Medical History / Comment(s): parkinsons cardioversion. A/Ox2 is baseline mental status. History of Any Multi-Drug Resistant Organisms: None Reported Past Surgical History: No Surgical Hx Reported Additional Past Surgical History / Comment(s): shoulder Past Anesthesia/Blood Transfusion Reactions: No Reported Reaction Past Psychological History: No Psychological Hx Reported Smoking Status: Former smoker Past Alcohol Use History: None Reported, Rare Past Drug Use History: None Reported Medications and Allergies Home Medications Medication Instructions Recorded Confirmed Type Atenolol [Tenormin] 25 mg PO DAILY 09/01/16 12/12/16 History Lisinopril-Hctz 10-12.5 mg 1 tab PO DAILY 09/01/16 12/12/16 History [Zestoretic 10-12.5] Memantine [Namenda] 10 mg PO BID 09/01/16 12/12/16 History Donepezil [Aricept] 10 mg PO HS 10/18/16 12/12/16 History Furosemide [Lasix] 20 mg PO DAILY 12/12/16 12/12/16 History Allergies Allergy/AdvReac Type Severity Reaction Status Date / Time No Known Allergies Allergy Verified 12/12/16 15:45 Surgical - Exam Vital Signs Temp Pulse Resp BP Pulse Ox 97.5 F L 56 L 18 203/83 99 12/12/16 14:59 12/12/16 14:59 12/12/16 14:59 12/12/16 14:59 12/12/16 14:59 Results - Labs 12/12/16 15:31 12/12/16 15:31
[2016-12-13 14:55] VITALS: BMI 19.5
[2016-12-13] MEDS: amLODIPine 5 MG TAB PO SCH (15:51)
--- NOTE | 2016-12-13 21:05 | HP ---
DATE OF ADMISSION: 12/12/2016 CHIEF COMPLAINT: Bilateral leg swelling and weight gain. This 76-year-old gentleman with a past medical history of multiple medical problems, including atrial fibrillation, congestive heart failure, dementia, Parkinson's, history of gait dysfunction being followed by Dr. Duncan in the outpatient setting apparently living with her family. The patient is was noted to have increased shortness of breath as well as 6 pound weight gain. The patient came to [facility] and was admitted to the hospital for further evaluation and treatment. Chest x-ray showed evidence of congestive heart failure. NT-proBNP was 1560. There is no history of any fever, rigors or chills. No history of headache, loss of consciousness or seizures. The patient is minimally confused and unable to give a coherent history. Most of the history taken from my discussion with staff and review of the chart at this time. PAST MEDICAL HISTORY: History of congestive heart failure, history of atrial fibrillation. History of dementia, history of Parkinson's, history of gait dysfunction. Medications prior to admission include: 1. Namenda 10 mg p.o. b.i.d. 3. Lasix 20 mg p.o. daily. 4. Aricept 10 mg q.h.s. 5. Tenormin 25 mg p.o. daily. ALLERGIES: None. FAMILY HISTORY, SOCIAL HISTORY AND REVIEW OF SYSTEMS: Could not be taken at length. Per chart, previous history of smoking. Patient is conscious, but confused, oriented times one. Pulse 61, blood pressure 120/75, respiratory rate 16, temperature 97.6, pulse ox 100% on room air. HEENT: Conjunctivae normal. NECK: No jugular venous distention. No carotid bruit. No lymph node enlargement. CARDIOVASCULAR: S1, S2 muffled. RESPIRATORY: Breath sounds diminished at the bases. A few scattered rhonchi. No crackles. ABDOMEN: Soft, nontender. No mass palpable. Legs: No edema. No swelling. Nervous system: Higher functions as mentioned earlier. Mildly confused. Otherwise, tone is increased. Power is also reduced. No sensory abnormalities. Gait not tested. LYMPHATICS: No lymph nodes palpable in the neck, axillae or groin. SKIN: No ulcer, rash or bleeding. JOINTS: No active deforming arthropathy. LABORATORY DATA: WBC 5.9, hemoglobin 10.9. Sodium is 148. Creatinine is 1.30. Total protein 6.2. ASSESSMENT: 1. Shortness of breath, bilateral leg swelling, possible congestive heart failure exacerbation. 2. Anemia, normocytic anemia of chronic disease. 3. Hyponatremia. 4. Increased creatinine with chronic kidney disease stage III. 5. Severe protein calorie malnutrition, BMI of 19.5. 6. Atrial fibrillation, paroxysmal. 7. History of congestive heart failure. 8. History of dementia. 9. History of Parkinson's. 10. History of cardioversion. 11. Change in mental status, metabolic encephalopathy, multifactorial, present on admission. 12. FULL CODE. RECOMMENDATIONS AND DISCUSSION: This 76-year-old gentleman who presented with multiple complex medical issues, we will monitor the patient closely. Continue the current medications. Symptomatic treatment. Otherwise, cautious diuretics. Other than that, I would also recommend continue to monitor. Chest x-ray has been reviewed. EKG is noted. We will follow the patient closely with cardiology. Further recommendations to follow. A copy of dictation being forwarded to Dr. Duncan who is the primary physician. ABELINO
[2016-12-13] MEDS: DONEPEZIL 10 MG TAB PO SCH (21:37)
[2016-12-14] MEDS: FUROSEMIDE 10 MG/ML 4 ML VIAL IV SCH ×2 (00:16→13:21)
[2016-12-14 07:26] LABS: Calcium 8.9 mg/dL (8.4-10.2); Potassium 4.7 mmol/L (3.5-5.1)
[2016-12-14] MEDS: MEMANTINE 10 MG TAB PO SCH ×2 (09:42→20:13)
[2016-12-14] MEDS: ATENOLOL 25 MG TAB PO SCH (09:42)
[2016-12-14] MEDS: ASPIRIN 81 MG CHEW PO SCH (09:42)
[2016-12-14 09:50] LABS: Basophils % (A) 1 %; CH 29.7; CHCM 31.3; Eosinophils # (A) 0.1 k/uL (0-0.7); Eosinophils % (A) 1 %; HCT 39.6 % (39.0-53.0); HDW 2.21; HGB 12.3 gm/dL (13.0-17.5); Luc # (Auto) 0.14; Luc % (Auto) 2; Lymphocytes # (A) 1.6 k/uL (1.0-4.8); Lymphocytes % (A) 19 %; MCH 29.6 pg (25.0-35.0); MCV 95.4 fL (80.0-100.0); Monocytes # (A) 0.7 k/uL (0-1.0); Monocytes % (A) 8 %; Neutrophils % (A) 70 %; RBC 4.16 m/uL (4.30-5.90); RDW 15.3 % (11.5-15.5); WBC 8.5 k/uL (3.8-10.6); WBC (Perox) 8.51
--- NOTE | 2016-12-14 10:23 | ECHOF ---
Referral Reason:sob MEASUREMENTS -------- HEIGHT: 188.0 cm WEIGHT: 69.0 kg BP: 190/92 RVIDd: 3.7 cm (< 3.3) IVSd: 1.3 cm (0.6 - 1.1) LVIDd: 4.3 cm (3.9 - 5.3) LVPWd: 1.0 cm (0.6 - 1.1) IVSs: 1.5 cm LVIDs: 3.1 cm LVPWs: 1.3 cm Ao Diam: 3.5 cm (2.0 - 3.7) AV Cusp: 1.8 cm (1.5 - 2.6) LA Diam: 3.7 cm (2.7 - 3.8) MV EXCURSION: 11.453 mm (> 18.000) MV EF SLOPE: 49 mm/s (70 - 150) EPSS: 0.5 cm MV E Jann: 0.64 m/s MV DecT: 270 ms MV A Jann: 0.60 m/s MV E/A Ratio: 1.06 RAP: 5.00 mmHg RVSP: 25.39 mmHg FINDINGS -------- Sinus rhythm. This was a technically difficult study with suboptimal views. There is mild concentric left ventricular hypertrophy. Overall left ventricular systolic function is normal with, an EF between 55 - 60 %. The right ventricle is mildly enlarged. The left atrial size is normal. Aortic valve is trileaflet and is mildly thickened. Mild mitral annular calcification present. There is trace mitral regurgitation. Trace tricuspid regurgitation present. The right ventricular systolic pressure, as measured by Doppler, is 25.39mmHg. Trace/mild (physiologic) pulmonic regurgitation. The aortic root size is normal. Normal inferior vena cava with normal inspiratory collapse consistent with estimated right atrial pressure of 5 mmHg. Echo free space may represent effusion or a pericardial fat pad. CONCLUSIONS -------- 1. Sinus rhythm. 2. Trace tricuspid regurgitation present. 3. The right ventricular systolic pressure, as measured by Doppler, is 25.39mmHg. 4. Trace/mild (physiologic) pulmonic regurgitation. 5. The aortic root size is normal. 6. Normal inferior vena cava with normal inspiratory collapse consistent with estimated right atrial pressure of 5 mmHg. 7. Echo free space may represent effusion or a pericardial fat pad. 8. This was a technically difficult study with suboptimal views. 9. There is mild concentric left ventricular hypertrophy. 10. Overall left ventricular systolic function is normal with, an EF between 55 - 60 %. 11. The right ventricle is mildly enlarged. 12. The left atrial size is normal. 13. Aortic valve is trileaflet and is mildly thickened. 14. Mild mitral annular calcification present. 15. There is trace mitral regurgitation. EXECUTIVE ADMINISTRATIVE ASSISTANT: Cintia Medina RDCS
[2016-12-14 11:27] LABS: Appearance,Urine Clear (Clear); Bilirubin,Urine Negative (Negative); Glucose,Urine (UA) Negative (Negative); Ketones,Urine Negative (Negative); Leukocyte Esterase,Urine Negative (Negative); Nitrite,Urine Negative (Negative); Protein,Urine Negative (Negative); Specific Gravity,Urine 1.011 (1.001-1.035); UA Billing (MACRO vs. MICRO) CHEM; Urobilinogen,Urine <2.0 mg/dL (<2.0)
[2016-12-14] MEDS: amLODIPine 5 MG TAB PO SCH (11:35)
[2016-12-14] MEDS: LISINOPRIL-HCTZ 10-12.5 MG 1 EACH TAB PO SCH (11:35)
[2016-12-14] MEDS ORDERED: HYDROcodone/APAP 15 ML SOLUTION PO PRN (15:00)
[2016-12-14] MEDS: FUROSEMIDE 40 MG TAB PO SCH (15:27)
--- NOTE | 2016-12-14 15:36 | P.PN ---
Subjective Principal diagnosis: congestive heart failure this is a 76-year-old gentleman with history of hypertension, paroxysmal atrial fibrillation, dementia, Parkinson's, who presented to the hospital with bilateral leg swelling. He was initiated on IV Lasix for mild congestive cardiac failure,creatinine today 1.7, up from 1.3, patient diuresed well. He no longer has any leg swelling. He was also seen in consultation by Dr. Houser significant cyanosis and discoloration of the right foot. His recommendation at this time is just to continue maximal medical therapy.Echocardiogram with Doppler study was performed which revealed normal left ventricular systolic function.IV Lasix has been discontinued today, and patient has been put on oral diuretics. Objective - Vital Signs Vital signs: Vital Signs Temp 97.8 F 12/14/16 15:26 Pulse 60 12/14/16 15:26 Resp 16 12/14/16 15:26 BP 122/62 12/14/16 15:26 Pulse Ox 97 12/14/16 15:26 Intake & Output 12/13/16 12/14/16 12/14/16 18:59 06:59 18:59 Intake Total 600 300 480 Output Total 200 2 100 Balance 400 298 380 Weight 69 kg 66.5 kg Intake: Oral 600 300 480 Output: Urine 200 100 Stool 2 Other: Voiding Method Incontinent Diaper Diaper Incontinent Incontinent # Voids 3 2 2 - Exam PHYSICAL EXAMINATION: HEENT: [Head is atraumatic, normocephalic. Pupils equal, round. Neck is supple. There is no elevated jugular venous pressure.] HEART EXAMINATION: heart S1 and S2 normal CHEST EXAMINATION:[ Lungs are clear to auscultation and precussion. No chest wall tenderness is noted on palpation or with deep breathing.] ABDOMEN: [ Soft, nontender. Bowel sounds are heard. No organomegaly noted]. EXTREMITIES:[ 1+ peripheral pulses with no evidence of peripheral edema and no calf tenderness noted].Evidence of redness of the right foot NEUROLOGIC [patient is awake, alert and oriented -3.] . - Labs CBC & Chem 7: 12/14/16 08:47 12/14/16 06:29 Labs: Abnormal Lab Results - Last 24 Hours (Table) 12/14/16 12/14/16 Range/Units 06:29 08:47 RBC 4.16 L (4.30-5.90) m/uL Hgb 12.3 L (13.0-17.5) gm/dL BUN 53 H (9-20) mg/dL Creatinine 1.76 H (0.66-1.25) mg/dL Assessment and Plan Plan: Assessment and plan #1 symptoms of bilateral lower leg swelling with evidence of mild congestive cardiac failure, likely diastolic in nature. Echo performed April last year revealed normal left ventricular systolic function. #2 uncontrolled hypertension #3 dementia #4 paroxysmal atrial fibrillation with prior cardioversion, not on anticoagulation.normal sinus rhythm. #5 Parkinson's Plan from cardiology's perspective, we will discontinue the IV Lasix and start the patient on oral diuretics. Check lytes BUN and creatinine in the morning. DNP note has been reviewed, I agree with a documented findings and plan of care. Patient was seen and examined.
[2016-12-14] MEDS ORDERED: HEPARIN SODIUM,PORCINE 5,000 UNIT/ML 1 ML VIAL IV ONE (19:14)
[2016-12-14 19:54] LABS: Partial Thromboplastin Time 26.5 sec (22.0-30.0); Prothrombin Time 10.3 sec (9.0-12.0)
[2016-12-14] MEDS: HEPARIN SODIUM,PORCINE/D5W PMX 25,000 UNIT in DEXTROSE/WATER 1 500ML.BAG IV SCH (20:12)
[2016-12-14] MEDS: DONEPEZIL 10 MG TAB PO SCH (20:13)
--- NOTE | 2016-12-14 22:43 | PN ---
DATE OF SERVICE: 12/14/2016 This 76-year-old gentleman admitted with CHF acute exacerbation is being closely monitored. The patient is on diuretics. I have seen and evaluated the patient with the nurse practitioner. Please refer to the nurse practitioner's notes and impressions documented as scribe for further information. Closely follow with Cardiology. Further recommendations to follow.
[2016-12-15 05:56] LABS: Glucose,Whole Blood 82 mg/dL (75-99)
[2016-12-15 06:41] LABS: Basophils % (A) 1 %; CH 29.4; CHCM 31.6; Eosinophils # (A) 0.1 k/uL (0-0.7); Eosinophils % (A) 2 %; HCT 37.5 % (39.0-53.0); HDW 2.23; HGB 11.6 gm/dL (13.0-17.5); Luc # (Auto) 0.14; Luc % (Auto) 2; Lymphocytes # (A) 1.5 k/uL (1.0-4.8); Lymphocytes % (A) 22 %; MCH 28.9 pg (25.0-35.0); MCV 93.3 fL (80.0-100.0); Mean Platelet Volume 6.9; Monocytes # (A) 0.6 k/uL (0-1.0); Monocytes % (A) 9 %; Neutrophils # (A) 4.2 k/uL (1.3-7.7); Neutrophils % (A) 65 %; RBC 4.01 m/uL (4.30-5.90); RDW 15.1 % (11.5-15.5); WBC 6.5 k/uL (3.8-10.6)
[2016-12-15 07:16] LABS: Potassium 3.8 mmol/L (3.5-5.1)
--- NOTE | 2016-12-15 07:33 | P.PN ---
Progress Note - Text 76-year-old white male, history of paroxysmal atrial fibrillation, history of dementia, history of parkinsonism patient came to the hospital with swelling of the lower extremity we were consulted for right leg evaluation patient has some hyperemia of the both feet more on the right than on the left on examination femorals is palpable popliteal is palpable on the right foot post tibial dorsal pedis by the Doppler left foot has a posttibial by the Doppler patient has no rest pain patient was started on heparin last night I will discuss with the family about the future plan we may consider doing a angiography a CTA to check more in detail about the infrapopliteal vessels meantime we'll continue with heparin
[2016-12-15] MEDS: ASPIRIN 81 MG CHEW PO SCH (07:56)
[2016-12-15] MEDS: FUROSEMIDE 40 MG TAB PO SCH (07:56)
[2016-12-15] MEDS: amLODIPine 5 MG TAB PO SCH (07:56)
[2016-12-15] MEDS: MEMANTINE 10 MG TAB PO SCH ×2 (07:56→21:06)
[2016-12-15] MEDS: LISINOPRIL-HCTZ 10-12.5 MG 1 EACH TAB PO SCH (07:56)
[2016-12-15] MEDS: ATENOLOL 25 MG TAB PO SCH (07:57)
--- NOTE | 2016-12-15 12:02 | XR ---
EXAMINATION TYPE: XR chest 1V portable DATE OF EXAM: 12/15/2016 11:25 AM COMPARISON: Prior chest x-ray 2016 HISTORY: Congestive heart failure TECHNIQUE: frontal view of the chest is obtained on 2 images. FINDINGS: There is no focal air space opacity, pleural effusion, or pneumothorax seen. The cardiac silhouette size is within normal limits, patient is rotated, there is a spinal curvature. The osseo us structures are intact. IMPRESSION: No acute process.
[2016-12-15] MEDS: HEPARIN SODIUM,PORCINE/D5W PMX 25,000 UNIT in DEXTROSE/WATER 1 500ML.BAG IV SCH ×2 (12:20→23:39)
[2016-12-15] MEDS: HEPARIN SODIUM,PORCINE 5,000 UNIT/ML 1 ML VIAL IV PRN ×2 (12:24→19:08)
--- NOTE | 2016-12-15 15:15 | P.PN ---
Subjective Date of service 12/14/2016 Progress note being dictated for Dr. Howe Interval history: This a 76-year-old gentleman admitted with shortness of breath , bilateral leg swelling, acute CHF exacerbation and multiple other medical issues. Diuresing well on Lasix IV push, diuresing well with weight decreased. Renal function worsening. Denies pain of bilateral lower extremities, at rest. Evaluated by vascular surgery, nonsurgical at this time. Echo suboptimal , reporting preserved LV function, EF 55-60%. Denies chest pain, palpitations. Objective - Vital Signs Vital signs: Vital Signs Temp 97.8 F 12/14/16 15:26 Pulse 60 12/14/16 15:26 Resp 16 12/14/16 15:26 BP 122/62 12/14/16 15:26 Pulse Ox 97 12/14/16 15:26 Intake & Output 12/13/16 12/14/16 12/14/16 18:59 06:59 18:59 Intake Total 600 300 480 Output Total 200 2 100 Balance 400 298 380 Weight 69 kg 66.5 kg Intake: Oral 600 300 480 Output: Urine 200 100 Stool 2 Other: Voiding Method Incontinent Diaper Diaper Incontinent Incontinent # Voids 3 2 2 - Exam PHYSICAL EXAM: VITAL SIGNS: [As above] GENERAL: [Sitting up in bed, tired appearing, confused, alert and oriented 1] HEENT: [Pupils equal conjunctiva normal.] NECK: [Supple, no JVD] RESPIRATORY EFFORT:[Normal LUNGS: [Bilateral bases diminished, occasional scattered rhonchi, no wheezes or crackles]] CARDIOVASCULAR[regular S1-S2, occasionally bradycardic at times.] GI: [Abdomen soft, nontender, positive bowel sounds.] PSYCH: [Alert and oriented -3, mood and affect normal.] NEURO: Higher functions as mentioned above, pleasantly confused, extremely weak ,power reduced, Doppler pulses of both right and left feet with decreased sensation in bilateral feet, cyanosis - Labs CBC & Chem 7: 12/15/16 06:19 12/15/16 06:19 Labs: Abnormal Lab Results - Last 24 Hours (Table) 12/14/16 12/14/16 Range/Units 06:29 08:47 RBC 4.16 L (4.30-5.90) m/uL Hgb 12.3 L (13.0-17.5) gm/dL BUN 53 H (9-20) mg/dL Creatinine 1.76 H (0.66-1.25) mg/dL Assessment and Plan Plan: 1. shortness of breath, bilateral leg swelling, acute congestive heart failure exacerbation, diastolic dysfunction, EF 5560% 2. Anemia, normocytic of chronic disease 3. Hyponatremia 4. Acute on chronic kidney disease, stage III 5. Severe protein calorie malnutrition, BMI 19 6. Atrial fibrillation, proximal, history of cardioversion 7. History of CHF 8. Dementia 9. Parkinson's disease 10. History of cardioversion 11. Change in mental status, acute metabolic encephalopathy, multifactorial, present on admission 12. Chronic peripheral vascular disease 13. Hypertension Plan continue on current medication regime ,monitoring and symptomatic treatment. Lasix converted to oral. Close monitoring of renal function and lytes with repeat labs ordered for a.m. PT/OT consult in place with recommendations pending .Follow closely with both vascular and cardiology. Further recommendations to follow. The impression and plan of care has been dictated as directed. : I performed a H&P examination of this patient and discussed the same with the dictator. I agree with the dictator's note. Any additional findings/opinions/ etc. will be noted.
--- NOTE | 2016-12-15 16:10 | P.PN ---
Subjective Principal diagnosis: congestive heart failure this is a 76-year-old gentleman with history of hypertension, paroxysmal atrial fibrillation, dementia, Parkinson's, who presented to the hospital with bilateral leg swelling. He was initiated on IV Lasix for mild congestive cardiac failure,creatinine today 1.8, He no longer has any leg swelling. He was also seen in consultation by Dr. Julian for significant cyanosis and discoloration of the right foot. His recommendation at this time is just to continue maximal medical therapy.Echocardiogram with Doppler study was performed which revealed normal left ventricular systolic function. She is to be on by mouth Lasix. We will check lytes BUN and creatinine in the morning. Objective - Vital Signs Vital signs: Vital Signs Temp 97.1 F L 12/15/16 12:00 Pulse 53 L 12/15/16 12:00 Resp 18 12/15/16 15:11 BP 85/54 12/15/16 12:00 Pulse Ox 97 12/15/16 12:00 Intake & Output 12/14/16 12/15/16 12/15/16 18:59 06:59 18:59 Intake Total 720 150 257.488 Output Total 100 Balance 620 150 257.488 Weight 67 kg Intake: Intake, IV Titration 150 257.488 Amount Heparin Sodium,Porcine/ 150 257.488 D5w Pmx 25,000 unit In Dextrose/Water 1 500ml. bag @ 12 UNITS/KG/HR 15. 96 mls/hr IV .Q24H [facility] Rx #:[id number] Oral 720 Output: Urine 100 Other: Voiding Method Diaper Incontinent Incontinent Incontinent # Voids 2 1 - Exam PHYSICAL EXAMINATION: HEENT: [Head is atraumatic, normocephalic. Pupils equal, round. Neck is supple. There is no elevated jugular venous pressure.] HEART EXAMINATION: heart S1 and S2 normal CHEST EXAMINATION:[ Lungs are clear to auscultation and precussion. No chest wall tenderness is noted on palpation or with deep breathing.] ABDOMEN: [ Soft, nontender. Bowel sounds are heard. No organomegaly noted]. EXTREMITIES:[ 1+ peripheral pulses with no evidence of peripheral edema and no calf tenderness noted].Evidence of redness of the right foot NEUROLOGIC [patient is awake, alert and oriented -3.] . - Labs CBC & Chem 7: 12/15/16 06:19 12/15/16 06:19 Labs: Abnormal Lab Results - Last 24 Hours (Table) 12/15/16 12/15/16 12/15/16 Range/Units 02:00 06:19 06:19 RBC 4.01 L (4.30-5.90) m/uL Hgb 11.6 L (13.0-17.5) gm/dL Hct 37.5 L (39.0-53.0) % APTT 47.2 H (22.0-30.0) sec Carbon Dioxide 33 H (22-30) mmol/L BUN 62 H (9-20) mg/dL Creatinine 1.86 H (0.66-1.25) mg/dL 12/15/16 Range/Units 06:19 RBC (4.30-5.90) m/uL Hgb (13.0-17.5) gm/dL Hct (39.0-53.0) % APTT 43.2 H (22.0-30.0) sec Carbon Dioxide (22-30) mmol/L BUN (9-20) mg/dL Creatinine (0.66-1.25) mg/dL Assessment and Plan Plan: Assessment and plan #1 symptoms of bilateral lower leg swelling with evidence of mild congestive cardiac failure, likely diastolic in nature. Echo performed April last year revealed normal left ventricular systolic function. #2 uncontrolled hypertension #3 dementia #4 paroxysmal atrial fibrillation with prior cardioversion, not on anticoagulation.normal sinus rhythm. #5 Parkinson's Plan From cardiology's perspective, we will recommend to continue current dose of by mouth Lasix. We will follow this patient with you now on an as-needed basis only, please don't hesitate to call with any questions. Follow-up appointment will be made in the office post discharge. DNP note has been reviewed, I agree with a documented findings and plan of care. Patient was seen and examined.
[2016-12-15] MEDS: DONEPEZIL 10 MG TAB PO SCH (21:06)
[2016-12-16 03:38] VITALS: RESP 18
--- NOTE | 2016-12-16 07:43 | PN ---
DATE OF SERVICE: 12/15/2016 This 77-year-old gentleman admitted with CHF acute exacerbation and multiple medical problems including peripheral vascular disease. Seen and evaluated the patient along with nurse practitioner. Please refer to the nurse practitioner notes and impression documented as a scribe for further information. Further recommendations to follow.
[2016-12-16 07:44] VITALS: BP 130/71; PULSE 52; TEMP 97.9
[2016-12-16 08:07] LABS: Calcium 8.9 mg/dL (8.4-10.2); Potassium 3.7 mmol/L (3.5-5.1)
[2016-12-16 08:45] LABS: Basophils % (A) 1 %; CH 29.7; CHCM 32.5; Eosinophils # (A) 0.1 k/uL (0-0.7); Eosinophils % (A) 2 %; HCT 36.5 % (39.0-53.0); HDW 2.41; Luc # (Auto) 0.13; Luc % (Auto) 2; Lymphocytes # (A) 1.3 k/uL (1.0-4.8); Lymphocytes % (A) 22 %; MCH 30.1 pg (25.0-35.0); MCHC 32.9 g/dL (31.0-37.0); MCV 91.6 fL (80.0-100.0); Monocytes # (A) 0.5 k/uL (0-1.0); Monocytes % (A) 8 %; Neutrophils # (A) 3.8 k/uL (1.3-7.7); Neutrophils % (A) 65 %; RBC 3.99 m/uL (4.30-5.90); RDW 14.8 % (11.5-15.5); WBC 5.9 k/uL (3.8-10.6); WBC (Perox) 6.13
[2016-12-16] MEDS ORDERED: FUROSEMIDE 40 MG TAB PO SCH (09:00)
[2016-12-16] MEDS: ATENOLOL 25 MG TAB PO SCH (09:30)
[2016-12-16] MEDS: amLODIPine 5 MG TAB PO SCH (09:30)
[2016-12-16] MEDS: MEMANTINE 10 MG TAB PO SCH (09:30)
[2016-12-16] MEDS: ASPIRIN 81 MG CHEW PO SCH (09:30)
--- NOTE | 2016-12-16 13:40 | PN ---
Mr. Beckham was seen on vascular consult because of some discoloration of the right foot. Patient has a history of paroxysmal atrial fibrillation, history of dementia, history of Parkinson's disease. On examination, femoral popliteal pulses are present. Patient has a posterior ( ) by the Doppler. Patient had this discoloration for a long time according to the family and he has been seen by a different vascular surgeon in the past. PLAN: Patient is going to [facility] today and I will follow up in office next week.
--- NOTE | 2016-12-16 13:44 | DS ---
DATE OF ADMISSION: 12/12/2016 DATE OF DISCHARGE: FINAL DIAGNOSES: 1. Shortness of breath, bilateral leg swelling, congestive heart failure acute exacerbation with acute on chronic diastolic dysfunction, ejection fraction 55% to 60%. 2. Anemia, normocytic of chronic disease. 3. Peripheral arterial disease. 4. Hypernatremia. 5. Acute on chronic kidney disease, stage III. 6. Change in mental status, metabolic encephalopathy, acute on chronic, multifactorial. 7. Severe protein calorie malnutrition, BMI 19. 8. Gait dysfunction. 9. Atrial fibrillation, paroxysmal. 10. History of cardioversion. 11. History of congestive heart failure. 12. History of dementia. 13. Parkinson disease. 14. History of hypertension. 15. FULL CODE. DISCHARGE DISPOSITION: The patient will be discharged in stable condition with guarded prognosis. Patient will be transferred to [facility]. Total time taken 35 minutes. HISTORY OF PRESENT ILLNESS: This 76-year-old gentleman with a past medical history of multiple medical problems as mentioned earlier being following by Dr. Duncan in the outpatient setting was admitted with CHF, acute exacerbation, weakness and multiple other medical problems. Patient was treated in conjunction with Cardiology and vascular surgery, Dr. Malhotra, also saw the patient and recommended conservative line of management at this time for peripheral ulcer disease. Otherwise, the patient is stable, but overall prognosis is extremely guarded because of multiple complex medical issues. On exam, vitals are stable. CARDIOVASCULAR SYSTEM: S1, S2 muffled. ABDOMEN: Soft. NERVOUS SYSTEM: Diffusely weak. DISCHARGE ADVICE: 1. Diet is cardiac. 2. Activity limited until followup. 3. Follow up with Dr. Duncan in [facility] in 2 to 3 days. 4. Follow up with Cardiology and Dr. Malhotra as recommended. MEDICATIONS: 1. Ecotrin 81 mg daily. 2. Tenormin 12.5 mg daily. 3. Aricept 10 mg q.h.s. 4. Lasix 40 mg daily. 5. Tilden elixir 7 mL q.6 p.r.n. 6. Namenda 10 mg p.o. b.i.d. 7. Norvasc 5 mg daily. 8. Sinemet one p.o. b.i.d. 9. Multivitamins 1 p.o. daily. 10. Thiamine 100 mg daily. 11. Folic acid 1 mg p.o. daily.
[2016-12-16 13:47] LABS: Cholesterol 151 mg/dL (<200); HDL Cholesterol 44 mg/dL (40-60); Triglycerides 81 mg/dL (<150)
== END 2016-12-16 14:48 | DRG 291 ==
LOC: EC 14:56 → 6SEL 17:14 → 4MS4W 12-15 12:48
PROVIDERS: ADMIT Internal Medicine; ATTEND Internal Medicine
DX: I13.0 Hypertensive heart and chronic kidney disease with heart failure and stage 1 through stage 4 chronic kidney disease, or unspecified chronic kidney disease (principal); I50.33 Acute on chronic diastolic (congestive) heart failure; E43 Unspecified severe protein-calorie malnutrition; G93.41 Metabolic encephalopathy; E87.0 Hyperosmolality and hypernatremia; Z68.1 Body mass index [BMI] 19.9 or less, adult; G20 Parkinson's disease; F02.80 Dementia in other diseases classified elsewhere, unspecified severity, without behavioral disturbance, psychotic disturbance, mood disturbance, and anxiety; I48.0 Paroxysmal atrial fibrillation; D63.8 Anemia in other chronic diseases classified elsewhere; N18.3 Chronic kidney disease, stage 3 (moderate); R26.9 Unspecified abnormalities of gait and mobility; I73.9 Peripheral vascular disease, unspecified; Z87.891 Personal history of nicotine dependence; Z79.899 Other long term (current) drug therapy
CPT/HCPCS: 36415; 71010; 71020; 80048; 80053; 80061; 81003; 82550; 82553; 83880; 84484; 85025; 85610; 85730; 93005; 93306

== ENCOUNTER 2017-08-22 14:33 | Emergency (ER) | payer MEDICARE, BC ==
[2017-08-22 14:47] VITALS: RESP 16
--- NOTE | 2017-08-22 15:07 | ED ---
General Adult HPI - General Chief complaint: Abdominal Pain Stated complaint: Constipation Time Seen by Provider: 08/22/17 14:43 Source: patient, EMS, RN notes reviewed, old records reviewed Mode of arrival: EMS Limitations: altered mental status - History of Present Illness Initial comments: If complaint and history of present illness this is a 76-year-old male with advanced Parkinson's and dementia. He lives in a residential. He's been sent because of possible constipation. The patient's abdomen is tympanitic and bloated. The patient is unable to answer questions on his own. - Related Data Home Medications Medication Instructions Recorded Confirmed Memantine [Namenda] 10 mg PO BID 09/01/16 08/22/17 Donepezil [Aricept] 10 mg PO HS 10/18/16 08/22/17 Atenolol [Tenormin] 25 mg PO DAILY 08/22/17 08/22/17 Carbidopa-Levodopa 25-100 mg 1 tab PO TID 08/22/17 08/22/17 [Sinemet 25-100] Furosemide [Lasix] 80 mg PO DAILY 08/22/17 08/22/17 amLODIPine [Norvasc] 2.5 mg PO DAILY 08/22/17 08/22/17 Previous Rx's Medication Instructions Recorded Aspirin 81 mg PO DAILY #30 chew 12/16/16 Allergies Allergy/AdvReac Type Severity Reaction Status Date / Time No Known Allergies Allergy Verified 08/22/17 14:56 Review of Systems ROS Statement: Those systems with pertinent positive or pertinent negative responses have been documented in the HPI. Review of systems. The patient does have dementia and he answers no to virtually all questions. He does state though that he has a bowel movement approximately every 3 days. Remember the last time he had a bowel movement he denies headache or chest pain or shortness of breath or abdominal pain. Past medical problems obtained from previous charts and they include A. fib, CHF and dementia. Parkinson's. He did cardioversion in the past. There is a surgical history of shoulder surgery. Ex-smoker. No alcohol use now. And no known ALLERGIES. ROS Other: All systems not noted in ROS Statement are negative. Past Medical History Past Medical History: Atrial Fibrillation, Heart Failure, Dementia Additional Past Medical History / Comment(s): parkinsons cardioversion. A/Ox2 is baseline mental status. History of Any Multi-Drug Resistant Organisms: None Reported Past Surgical History: No Surgical Hx Reported Additional Past Surgical History / Comment(s): shoulder Past Anesthesia/Blood Transfusion Reactions: No Reported Reaction Past Psychological History: No Psychological Hx Reported Smoking Status: Former smoker Past Alcohol Use History: None Reported, Rare Past Drug Use History: None Reported General Exam - General Exam Comments Initial Comments: General: The patient is awake, has dementia, is not sure why he is here. Denies having any pain. Vital signs are temperature 98.2 pulse 57 respiratory rate 16 pulse ox 99% room air blood pressure 170/70 Eye: Pupils are equal, round and reactive to light, extra-ocular movements are intact ; there is normal conjunctiva bilaterally. No signs of icterus. Ears, nose, mouth and throat: There are moist mucous membranes and no oral lesions. Neck: The neck is supple, there is no tenderness . Cardiovascular: There is a regular rate and rhythm. No murmur, rub or gallop is appreciated. Respiratory: Lungs are clear to auscultation, respirations are non-labored, breath sounds are equal. No wheezes, stridor, rales, or rhonchi. Gastrointestinal: Patient denies abdominal pain, he thinks his last bowel movement was 3 days ago. His abdomen is bloated and tympanitic. With active bowel sounds. Back: No complaint of back pain Musculoskeletal: No edema. Neurological: Patient has advanced Parkinson's with dementia. No tremor at this time. Unable to fully evaluate because of the patient's dementia. Skin: Skin is warm and dry and no rashes or lesions are noted. Limitations: altered mental status Course Vital Signs 08/22/17 14:35 Temperature 98.2 F Pulse Rate 57 L Respiratory 16 Rate Blood Pressure 170/70 O2 Sat by Pulse 99 Oximetry Medical Decision Making - Medical Decision Making Medical decision making; the patient was sent emergency room because of for several days. reports even longer. efforts are being made including suppositories but nothing is been effective. the patient has parkinson's and alzheimer's disease X-ray of the abdomen was done and reviewed by radiologist his impression is there is a scoliotic curvature to the spine. Lung bases are clear. No bowel obstruction or pneumoperitoneum evident. Bone mineralization is reduced. Some retained fecal debris present throughout the distribution of the colon. Impression findings suggestive fecal stasis. Scoliosis. Follow-up as indicated. As read by Dr. Weber With the assistance of registered nurse francis, I attempted to disimpact the patient the patient's stool is soft. Brown. The patient will have an enema. Enema was administered small amount resulted. The patient will be sent back to the facility with mag citrate to be administered tomorrow. If not effective than that a follow-up family physician. - Lab Data Result diagrams: 08/22/17 15:16 08/22/17 15:16 Lab Results 08/22/17 08/22/17 08/22/17 Range/Units 15:16 15:16 15:16 WBC 7.9 (3.8-10.6) k/uL RBC 4.18 L (4.30-5.90) m/uL Hgb 12.6 L (13.0-17.5) gm/dL Hct 38.5 L (39.0-53.0) % MCV 92.2 (80.0-100.0) fL MCH 30.1 (25.0-35.0) pg MCHC 32.6 (31.0-37.0) g/dL RDW 13.4 (11.5-15.5) % Plt Count 286 (150-450) k/uL Neutrophils % 65 % Lymphocytes % 21 % Monocytes % 8 % Eosinophils % 3 % Basophils % 0 % Neutrophils # 5.2 (1.3-7.7) k/uL Lymphocytes # 1.7 (1.0-4.8) k/uL Monocytes # 0.6 (0-1.0) k/uL Eosinophils # 0.3 (0-0.7) k/uL Basophils # 0.0 (0-0.2) k/uL Sodium 141 (137-145) mmol/L Potassium 4.6 (3.5-5.1) mmol/L Chloride 99 (98-107) mmol/L Carbon Dioxide 32 H (22-30) mmol/L Anion Gap 10 mmol/L BUN 37 H (9-20) mg/dL Creatinine 1.52 H (0.66-1.25) mg/dL Est GFR (MDRD) Af Amer 54 (>60 ml/min/1.73 sqM) Est GFR (MDRD) Non-Af 45 (>60 ml/min/1.73 sqM) Glucose 94 (74-99) mg/dL Plasma Lactic Acid Ronald 1.3 (0.7-2.0) mmol/L Calcium 9.5 (8.4-10.2) mg/dL Total Bilirubin 0.4 (0.2-1.3) mg/dL AST 27 (17-59) U/L ALT 29 (21-72) U/L Alkaline Phosphatase 76 (38-126) U/L Total Protein 6.9 (6.3-8.2) g/dL Albumin 4.2 (3.5-5.0) g/dL Amylase 42 (30-110) U/L Lipase 94 (23-300) U/L Urine Color Urine Appearance (Clear) Urine pH (5.0-8.0) Ur Specific [place] (1.001-1.035) Urine Protein (Negative) Urine Glucose (UA) (Negative) Urine Ketones (Negative) Urine Blood (Negative) Urine Nitrite (Negative) Urine Bilirubin (Negative) Urine Urobilinogen (<2.0) mg/dL Ur Leukocyte Esterase (Negative) Urine RBC (0-5) /hpf Urine WBC (0-5) /hpf Urine Bacteria (None) /hpf 08/22/17 Range/Units 15:31 WBC (3.8-10.6) k/uL RBC (4.30-5.90) m/uL Hgb (13.0-17.5) gm/dL Hct (39.0-53.0) % MCV (80.0-100.0) fL MCH (25.0-35.0) pg MCHC (31.0-37.0) g/dL RDW (11.5-15.5) % Plt Count (150-450) k/uL Neutrophils % % Lymphocytes % % Monocytes % % Eosinophils % % Basophils % % Neutrophils # (1.3-7.7) k/uL Lymphocytes # (1.0-4.8) k/uL Monocytes # (0-1.0) k/uL Eosinophils # (0-0.7) k/uL Basophils # (0-0.2) k/uL Sodium (137-145) mmol/L Potassium (3.5-5.1) mmol/L Chloride (98-107) mmol/L Carbon Dioxide (22-30) mmol/L Anion Gap mmol/L BUN (9-20) mg/dL Creatinine (0.66-1.25) mg/dL Est GFR (MDRD) Af Amer (>60 ml/min/1.73 sqM) Est GFR (MDRD) Non-Af (>60 ml/min/1.73 sqM) Glucose (74-99) mg/dL Plasma Lactic Acid Ronald (0.7-2.0) mmol/L Calcium (8.4-10.2) mg/dL Total Bilirubin (0.2-1.3) mg/dL AST (17-59) U/L ALT (21-72) U/L Alkaline Phosphatase (38-126) U/L Total Protein (6.3-8.2) g/dL Albumin (3.5-5.0) g/dL Amylase (30-110) U/L Lipase (23-300) U/L Urine Color Yellow Urine Appearance Clear (Clear) Urine pH 6.5 (5.0-8.0) Ur Specific [place] 1.010 (1.001-1.035) Urine Protein Negative (Negative) Urine Glucose (UA) Negative (Negative) Urine Ketones Negative (Negative) Urine Blood Moderate H (Negative) Urine Nitrite Negative (Negative) Urine Bilirubin Negative (Negative) Urine Urobilinogen <2.0 (<2.0) mg/dL Ur Leukocyte Esterase Trace H (Negative) Urine RBC 9 H (0-5) /hpf Urine WBC 19 H (0-5) /hpf Urine Bacteria Rare H (None) /hpf Disposition Clinical Impression: Constipation by delayed colonic transit Disposition: HOME SELF-CARE Condition: Stable Instructions: Constipation (ED), Fleet Enema (ED) Additional Instructions: Garden adequate fluids. Start milk of magnesia twice a day, tomorrow use magnesium citrate as provided. If still unable to a bowel movement follow-up with the family physician. Referrals: None,Stated [REFERRING] - 1-2 days Time of Disposition: 17:43
[2017-08-22 15:39] LABS: Appearance,Urine Clear (Clear); Bacteria,Urine Rare /hpf; Bilirubin,Urine Negative (Negative); Glucose,Urine (UA) Negative (Negative); Ketones,Urine Negative (Negative); Leukocyte Esterase,Urine Trace (Negative); Nitrite,Urine Negative (Negative); PH, Urine 6.5 (5.0-8.0); Particle Count 815; Protein,Urine Negative (Negative); RBC,Urine 9 /hpf (0-5); UA Billing (MACRO vs. MICRO) MICRO; Urobilinogen,Urine <2.0 mg/dL (<2.0); WBC,Urine 19 /hpf (0-5)
[2017-08-22 15:40] LABS: Calcium 9.5 mg/dL (8.4-10.2); Potassium 4.6 mmol/L (3.5-5.1); Total Bilirubin 0.4 mg/dL (0.2-1.3); Total Protein 6.9 g/dL (6.3-8.2)
--- NOTE | 2017-08-22 15:52 | XR ---
2 view abdomen HISTORY: Abdominal pain 2 views of the abdomen on 3 images. No comparisons There is a scoliotic curvature to the spine. Lung bases are clear. No bowel obstruction or pneumoperi toneum evident. Bone mineralization is reduced. Some retained fecal debris present throughout the dis tribution of the colon. IMPRESSION: Findings suggest fecal stasis. Scoliosis. Follow-up as indicated.
[2017-08-22 16:14] LABS: Basophils % (A) 0 %; CH 30.3; Eosinophils # (A) 0.3 k/uL (0-0.7); Eosinophils % (A) 3 %; HCT 38.5 % (39.0-53.0); HDW 2.41; HGB 12.6 gm/dL (13.0-17.5); Luc # (Auto) 0.16; Luc % (Auto) 2; Lymphocytes # (A) 1.7 k/uL (1.0-4.8); Lymphocytes % (A) 21 %; MCH 30.1 pg (25.0-35.0); MCHC 32.6 g/dL (31.0-37.0); MCV 92.2 fL (80.0-100.0); Mean Platelet Volume 7.2; Monocytes # (A) 0.6 k/uL (0-1.0); Monocytes % (A) 8 %; Neutrophils # (A) 5.2 k/uL (1.3-7.7); Neutrophils % (A) 65 %; RBC 4.18 m/uL (4.30-5.90); RDW 13.4 % (11.5-15.5); WBC 7.9 k/uL (3.8-10.6); WBC (Perox) 7.64
[2017-08-22] MEDS ORDERED: MAGNESIUM CITRATE 296 ML BOTTLE PO ONE (18:02)
[2017-08-22 18:39] VITALS: BP 168/72; PULSE 68; TEMP 97.8
== END 2017-08-22 18:35 | disposition home or self-care (01) ==
LOC: EC 14:33
DX: K59.01 Slow transit constipation (principal); F03.90 Unspecified dementia, unspecified severity, without behavioral disturbance, psychotic disturbance, mood disturbance, and anxiety; I48.91 Unspecified atrial fibrillation; I50.9 Heart failure, unspecified; Z87.891 Personal history of nicotine dependence; Z79.899 Other long term (current) drug therapy
CPT/HCPCS: 36415; 74020; 80053; 81001; 82150; 83605; 83690; 85025; 87077; 87086; 87186; 99284

== ENCOUNTER 2017-09-07 10:42 | Inpatient (IN) | payer MEDICARE, BC ==
[2017-09-07 10:49] VITALS: TEMP 99.3
[2017-09-07 10:51] LABS: Glucose,Whole Blood 163 mg/dL (75-99)
[2017-09-07 11:05] LABS: Basophils # (A) 0.1 k/uL (0-0.2); Basophils % (A) 1 %; Eosinophils # (A) 0.1 k/uL (0-0.7); Eosinophils % (A) 1 %; HCT 44.8 % (39.0-53.0); HGB 14.4 gm/dL (13.0-17.5); Lymphocytes % (A) 4 %; MCH 29.3 pg (25.0-35.0); MCHC 32.2 g/dL (31.0-37.0); MCV 91.1 fL (80.0-100.0); Mean Platelet Volume 7.4; Monocytes # (A) 1.1 k/uL (0-1.0); Monocytes % (A) 5 %; Neutrophils # (A) 20.7 k/uL (1.3-7.7); Neutrophils % (A) 89 %; Platelet Count 365 k/uL (150-450); RBC 4.92 m/uL (4.30-5.90); RDW 14.1 % (11.5-15.5); WBC 23.1 k/uL (3.8-10.6)
--- NOTE | 2017-09-07 11:06 | ED ---
Recheck HPI - General Chief Complaint: Recheck/Abnormal Lab/Rx Stated Complaint: unresponsive Time Seen by Provider: 09/07/17 10:44 Source: EMS Mode of arrival: EMS Limitations: altered mental status, physical limitation - History of Present Illness Initial Comments: Patient is an unresponsive 76-year-old male presenting to the emergency department by EMS. Patient reportedly has been unresponsive since woke this morning. Patient reportedly did have a fall last night. Unclear if any injury. Patient is unresponsive and provides no history. EMS states patient did have one Plover last night per history. They did provide 2 of Narcan without change in symptoms. - Related Data Home Medications Medication Instructions Recorded Confirmed Memantine [Namenda] 10 mg PO BID 09/01/16 09/07/17 Donepezil [Aricept] 10 mg PO HS 10/18/16 09/07/17 Atenolol [Tenormin] 25 mg PO DAILY 08/22/17 09/07/17 Carbidopa-Levodopa 25-100 mg 1 tab PO TID 08/22/17 09/07/17 [Sinemet 25-100] Furosemide [Lasix] 40 mg PO DAILY 08/22/17 09/07/17 amLODIPine [Norvasc] 2.5 mg PO DAILY 08/22/17 09/07/17 Docusate [Colace] 100 mg PO DAILY 09/07/17 09/07/17 Furosemide [Lasix] 20 mg PO DAILY 09/07/17 09/07/17 HYDROcodone/APAP 7.5-325MG [Plover 1 tab PO Q6HR PRN 09/07/17 09/07/17 7.5-325] Nystatin 100,000 Unit/gm Oint 1 applic TOPICAL BID 09/07/17 09/07/17 [Mycostatin Oint] Sennosides [Senna] 8.6 mg PO HS 09/07/17 09/07/17 Previous Rx's Medication Instructions Recorded Aspirin 81 mg PO DAILY #30 chew 12/16/16 Allergies Allergy/AdvReac Type Severity Reaction Status Date / Time No Known Allergies Allergy Verified 09/07/17 11:09 Review of Systems ROS Statement: Those systems with pertinent positive or pertinent negative responses have been documented in the HPI. ROS Other: All systems not noted in ROS Statement are negative. Limitations: ROS unobtainable due to patients medical condition Past Medical History Past Medical History: Atrial Fibrillation, Heart Failure, Dementia Additional Past Medical History / Comment(s): parkinsons cardioversion. A/Ox2 is baseline mental status. History of Any Multi-Drug Resistant Organisms: None Reported Past Surgical History: No Surgical Hx Reported Additional Past Surgical History / Comment(s): shoulder Past Anesthesia/Blood Transfusion Reactions: No Reported Reaction Past Psychological History: No Psychological Hx Reported Smoking Status: Former smoker Past Alcohol Use History: None Reported, Rare Past Drug Use History: None Reported General Exam Limitations: altered mental status, physical limitation General appearance: obtunded Head exam: Present: atraumatic, normocephalic Eye exam: Present: normal appearance ENT exam: Present: normal oropharynx Neck exam: Absent: tenderness (No step-off) Respiratory exam: Present: rales Cardiovascular Exam: Present: regular rate, normal rhythm GI/Abdominal exam: Present: soft, hernia (Umbilical that is easily reducible). Absent: tenderness Extremities exam: Present: pedal edema Expanded Neurological exam: Absent: protecting the airway Eye Response: (1) no response Motor Response: (1) no motor response Verbal Response: (1) no verbal response Psychiatric exam: Present: other (Nonverbal) Skin exam: Present: cyanosis (Bilateral feet) Course Vital Signs 09/07/17 09/07/17 09/07/17 10:44 11:15 12:27 Temperature 99.3 F Pulse Rate 90 Respiratory 18 24 Rate Blood Pressure 102/57 110/55 O2 Sat by Pulse 75 L 86 L Oximetry - Reevaluation(s) Reevaluation #1: 09/07/17 11:01 Long discussion had with regarding patient's poor condition. She states patient is to be DO NOT RESUSCITATE. She states they have previously discussed this and would not want any life sustaining measures. She states patient does have a poor quality of life with a history of advanced Parkinson's and does not get around well. She states patient did get up in the night and did have a fall. She states she does not believe there is any major injury but he may have hurt his hip or shoulder. She does not believe that he hit his head. is aware that standard of care is intubation at this time and failure to do so could result in worsening of patient's condition or . would like regular medical care without CPR or intubation. 09/07/17 11:08 EKG shows normal sinus rhythm 90. HI 190. QRS 86. QT 352. QTC 4:30. Normal axis. Septal Q waves. No acute ST change. 09/07/17 12:20 Patient reevaluated and unchanged. Family updated. Son is now present. Family still does want patient to be no code and no CPR. They are again made aware of patient's extreme illness. 09/07/17 12:20 Chest x-ray shows possible pneumonia. Patient will be covered with IV antibiotics for this. Patient does meet sepsis criteria diagnosed at 1220. 09/07/17 12:24 Patient does meet criteria for septic shock. IV fluid bolus given. 09/07/17 13:06 Case was also discussed with Dr. ford who did come evaluate the patient. He does not feel heparin should be provided at this time. Case was also discussed with Aggie with Dr. dawson Procedures - Sepsis Sepsis Focused Exam #1 Time Sepsis Criteria Met: 12:20 Sepsis Focused Exam Date: 09/07/17 Sepsis Focused Exam Time: 12:25 Sepsis Focused Exam Complete: Yes Vital Signs & RN Notes Reviewed: Yes Capillary Refill: < 2 Seconds: Fingers, > 2 Seconds: Toes Peripheral Pulses: Normal: Radial (R), Radial (L) Skin Color: Cyanotic (Of the toes, improved from prior) Respiratory Exam: respiratory distress, rales Cardiovascular Exam: regular rate, normal rhythm Medical Decision Making - Lab Data Result diagrams: 09/07/17 10:53 09/07/17 10:53 Lab Results 09/07/17 09/07/17 09/07/17 Range/Units 10:49 10:53 10:53 WBC 23.1 H (3.8-10.6) k/uL RBC 4.92 (4.30-5.90) m/uL Hgb 14.4 (13.0-17.5) gm/dL Hct 44.8 (39.0-53.0) % MCV 91.1 (80.0-100.0) fL MCH 29.3 (25.0-35.0) pg MCHC 32.2 (31.0-37.0) g/dL RDW 14.1 (11.5-15.5) % Plt Count 365 (150-450) k/uL Neutrophils % 89 % Lymphocytes % 4 % Monocytes % 5 % Eosinophils % 1 % Basophils % 1 % Neutrophils # 20.7 H (1.3-7.7) k/uL Lymphocytes # 1.0 (1.0-4.8) k/uL Monocytes # 1.1 H (0-1.0) k/uL Eosinophils # 0.1 (0-0.7) k/uL Basophils # 0.1 (0-0.2) k/uL Manual Slide Review Performed RBC Morphology Normal PT (9.0-12.0) sec INR (<1.2) APTT (22.0-30.0) sec Sodium 142 (137-145) mmol/L Potassium 4.7 (3.5-5.1) mmol/L Chloride 100 (98-107) mmol/L Carbon Dioxide 26 (22-30) mmol/L Anion Gap 16 mmol/L BUN 56 H (9-20) mg/dL Creatinine 2.35 H (0.66-1.25) mg/dL Est GFR (MDRD) Af Amer 33 (>60 ml/min/1.73 sqM) Est GFR (MDRD) Non-Af 27 (>60 ml/min/1.73 sqM) Glucose 165 H (74-99) mg/dL POC Glucose (mg/dL) 163 H (75-99) mg/dL POC Glu Camera Tuning Engineer ID McDaid, Lona Plasma Lactic Acid Ronald (0.7-2.0) mmol/L Calcium 9.2 (8.4-10.2) mg/dL Total Bilirubin 0.5 (0.2-1.3) mg/dL AST 37 (17-59) U/L ALT 37 (21-72) U/L Alkaline Phosphatase 93 (38-126) U/L Total Creatine Kinase (55-170) U/L CK-MB (CK-2) (0.0-2.4) ng/mL CK-MB (CK-2) Rel Index Troponin I (0.000-0.034) ng/mL NT-Pro-B Natriuret Pep pg/mL Total Protein 5.9 L (6.3-8.2) g/dL Albumin 3.5 (3.5-5.0) g/dL 01/11/18 01/11/18 01/11/18 Range/Units 10:53 10:53 10:53 WBC (3.8-10.6) k/uL RBC (4.30-5.90) m/uL Hgb (13.0-17.5) gm/dL Hct (39.0-53.0) % MCV (80.0-100.0) fL MCH (25.0-35.0) pg MCHC (31.0-37.0) g/dL RDW (11.5-15.5) % Plt Count (150-450) k/uL Neutrophils % % Lymphocytes % % Monocytes % % Eosinophils % % Basophils % % Neutrophils # (1.3-7.7) k/uL Lymphocytes # (1.0-4.8) k/uL Monocytes # (0-1.0) k/uL Eosinophils # (0-0.7) k/uL Basophils # (0-0.2) k/uL Manual Slide Review RBC Morphology PT 10.0 (9.0-12.0) sec INR 1.0 (<1.2) APTT 24.3 (22.0-30.0) sec Sodium (137-145) mmol/L Potassium (3.5-5.1) mmol/L Chloride (98-107) mmol/L Carbon Dioxide (22-30) mmol/L Anion Gap mmol/L BUN (9-20) mg/dL Creatinine (0.66-1.25) mg/dL Est GFR (MDRD) Af Amer (>60 ml/min/1.73 sqM) Est GFR (MDRD) Non-Af (>60 ml/min/1.73 sqM) Glucose (74-99) mg/dL POC Glucose (mg/dL) (75-99) mg/dL POC Glu Camera Tuning Engineer ID Plasma Lactic Acid Ronald 5.7 H* (0.7-2.0) mmol/L Calcium (8.4-10.2) mg/dL Total Bilirubin (0.2-1.3) mg/dL AST (17-59) U/L ALT (21-72) U/L Alkaline Phosphatase (38-126) U/L Total Creatine Kinase 154 (55-170) U/L CK-MB (CK-2) 3.9 H* (0.0-2.4) ng/mL CK-MB (CK-2) Rel Index 2.5 Troponin I 0.893 H* (0.000-0.034) ng/mL NT-Pro-B Natriuret Pep pg/mL Total Protein (6.3-8.2) g/dL Albumin (3.5-5.0) g/dL 09/07/17 Range/Units 10:53 WBC (3.8-10.6) k/uL RBC (4.30-5.90) m/uL Hgb (13.0-17.5) gm/dL Hct (39.0-53.0) % MCV (80.0-100.0) fL MCH (25.0-35.0) pg MCHC (31.0-37.0) g/dL RDW (11.5-15.5) % Plt Count (150-450) k/uL Neutrophils % % Lymphocytes % % Monocytes % % Eosinophils % % Basophils % % Neutrophils # (1.3-7.7) k/uL Lymphocytes # (1.0-4.8) k/uL Monocytes # (0-1.0) k/uL Eosinophils # (0-0.7) k/uL Basophils # (0-0.2) k/uL Manual Slide Review RBC Morphology PT (9.0-12.0) sec INR (<1.2) APTT (22.0-30.0) sec Sodium (137-145) mmol/L Potassium (3.5-5.1) mmol/L Chloride (98-107) mmol/L Carbon Dioxide (22-30) mmol/L Anion Gap mmol/L BUN (9-20) mg/dL Creatinine (0.66-1.25) mg/dL Est GFR (MDRD) Af Amer (>60 ml/min/1.73 sqM) Est GFR (MDRD) Non-Af (>60 ml/min/1.73 sqM) Glucose (74-99) mg/dL POC Glucose (mg/dL) (75-99) mg/dL POC Glu Camera Tuning Engineer ID Plasma Lactic Acid Ronald (0.7-2.0) mmol/L Calcium (8.4-10.2) mg/dL Total Bilirubin (0.2-1.3) mg/dL AST (17-59) U/L ALT (21-72) U/L Alkaline Phosphatase (38-126) U/L Total Creatine Kinase (55-170) U/L CK-MB (CK-2) (0.0-2.4) ng/mL CK-MB (CK-2) Rel Index Troponin I (0.000-0.034) ng/mL NT-Pro-B Natriuret Pep 2350 pg/mL Total Protein (6.3-8.2) g/dL Albumin (3.5-5.0) g/dL Critical Care Time Critical Care Time: Yes Total Critical Care Time: 48 Disposition Clinical Impression: Septic shock, Hip fracture, Pneumonia, Elevated troponin Disposition: ADMITTED IP TO THIS [facility] Condition: Critical Referrals: Davey Cast MD [Primary Care Provider] - 1-2 days Decision Time: 13:09
[2017-09-07 11:16] LABS: Albumin 3.5 g/dL (3.5-5.0); Calcium 9.2 mg/dL (8.4-10.2); Potassium 4.7 mmol/L (3.5-5.1); Total Bilirubin 0.5 mg/dL (0.2-1.3); Total Protein 5.9 g/dL (6.3-8.2)
[2017-09-07 11:40] LABS: Partial Thromboplastin Time 24.3 sec (22.0-30.0)
--- NOTE | 2017-09-07 11:59 | XR ---
EXAMINATION TYPE: XR pelvis AP view DATE OF EXAM: 09/07/2017 CLINICAL HISTORY: Pain. TECHNIQUE: 2 AP portable views of the pelvis are obtained. COMPARISON: None. FINDINGS: Kaw osseous structures are demineralized which is noted to lower sensitivity. In additio n there is rotation seen making evaluation suboptimal. There appears to be acute fracture left proxim al femur with impaction suspected transcervical in location. There is moderate joint space loss right hip. No hip joint dislocation is seen. Prominent fecal material overlying rectum is noted. IMPRESSION: There is acute fracture left proximal femur felt transcervical or midportion of femoral neck. (Initial encounter close type post traumatic fracture)
--- NOTE | 2017-09-07 12:01 | XR ---
EXAMINATION TYPE: XR shoulder limited LT DATE OF EXAM: 09/07/2017 CLINICAL HISTORY: Left shoulder pain. Unresponsive. TECHNIQUE: Two views of the left shoulder are obtained. COMPARISON: None. FINDINGS: Osseous structures are demineralized. There is no acute fracture/dislocation evident in the left shoulder on 2 views acquired. There is joint space loss and spurring at acromioclavicular joint . Glenohumeral joint is maintained. The visualized ribs are intact and unremarkable. IMPRESSION: There is no acute fracture or dislocation in the left shoulder.
--- NOTE | 2017-09-07 12:05 | XR ---
EXAMINATION TYPE: XR chest 1V portable DATE OF EXAM: 09/07/2017 HISTORY: Shortness of breath. COMPARISON: 12/15/2016 TECHNIQUE: Single view of the chest is submitted. FINDINGS: Demonstrated are scattered senescent parenchymal change. Perihilar infiltrates are noted which may reflect a bilateral pneumonia versus developing pulmonary e ciara. No pleural effusions are seen at this time. The heart is at the upper limits of normal. Hilar and mediastinal structures are within normal limits. Degenerative changes are seen of the dorsal spine. IMPRESSION: 1. Perihilar infiltrates are noted which may reflect a bilateral pneumonia versus developing pulmona ry edema. No pleural effusions are seen at this time. The heart is at the upper limits of normal.
--- NOTE | 2017-09-07 12:16 | CT ---
EXAMINATION TYPE: CT brain chuck cardenas DATE OF EXAM: 09/07/2017 COMPARISON: NONE HISTORY: Fall yesterday, patient unresponsive, labored breathing. CT DLP: 1446.[address] of the brain was performed. The ventricles, basal cisterns and sulci overlying the cerebral convexities demonstrate mild enlargem ent. There is no evidence for intracranial hemorrhage or sulcal effacement. There is decreased attenuatio n about the periventricular white matter and deep white matter of both cerebral hemispheres, compatib le with chronic small vessel ischemia. No mass effects are seen. If symptoms persist consider MRI. Osseous calvarium is intact. IMPRESSION: 1. Age related atrophic and chronic small vessel ischemic change without acute intracranial process seen at this time. CT Cervical Spine: Unenhanced CT of the cervical spine was performed with bone and soft tissue window settings submitted . Coronal and sagittal reconstruction is obtained. There is normal alignment and prevertebral soft tissues. No evidence for acute cervical fracture . Scattered degenerative disc disease and spondylosis. Biapical scarring. IMPRESSION: 1. No evidence for acute fracture or subluxation of the cervical spine.
[2017-09-07] MEDS ORDERED: PIPERACILLIN-TAZOBACTAM 3.375 GM in DEXTROSE/WATER 1 50ML.BAG IVPB STA (12:21)
[2017-09-07] MEDS ORDERED: SODIUM CHLORIDE 0.9% 600 ML IV STA (12:22)
[2017-09-07] MEDS ORDERED: LEVOFLOXACIN 750MG-D5W PMX 750 MG in DEXTROSE/WATER 1 150ML.BAG IVPB STA (12:22)
[2017-09-07] MEDS ORDERED: SODIUM CHLORIDE 0.9% 1,000 ML IV STA ×2 (12:22)
[2017-09-07 12:30] LABS: Creatine Kinase MB 3.9 ng/mL (0.0-2.4); Troponin I 0.893 ng/mL (0.000-0.034)
[2017-09-07] MEDS ORDERED: IPRATROPIUM-ALBUTEROL 3 ML NEB INHALATION PRN (13:10)
[2017-09-07] MEDS ORDERED: NALOXONE 0.4 MG/ML 1 ML VIAL IV PRN (13:10)
[2017-09-07] MEDS ORDERED: NOREPINEPHRIN 4 MG-0.9% NS PMX 4 MG/250 ML ML IV ONE (14:24)
[2017-09-07] MEDS ORDERED: NOREPINEPHRIN 4 MG-0.9% NS PMX 4 MG/250 ML ML IV SCH (14:30)
[2017-09-07 14:45] LABS: Glucose,Whole Blood 145 mg/dL (75-99)
--- NOTE | 2017-09-07 14:45 | XR ---
EXAMINATION TYPE: XR Hip Complete LT DATE OF EXAM: 09/07/2017 CLINICAL HISTORY: pain TECHNIQUE: AP and frogleg views of the left hip are obtained. COMPARISON: None. FINDINGS: There is an impacted left femoral neck fracture. No additional acute fractures seen with ce rtainty although portable technique limits evaluation. Mild degenerative narrowing left hip joint spa ce. IMPRESSION: 1. Impacted left femoral neck fracture. ICD 10 closed FRACTURE, INITIAL EVALUATION
--- NOTE | 2017-09-07 15:07 | CONS ---
CONSULTATION Mr. Beckham is a 76-year-old male who presented to the emergency room, brought by the family, being unresponsive. I am not able to obtain any history. Patient is unresponsive, not responding to painful stimuli. Apparently was on the floor for a while and was noted to have a fractured hip. He was noted to be in sinus mechanism on presentation and his blood pressure is low. Reviewing his old records, he had a prior admission in November of 2016 for peripheral edema at that time, and his echocardiogram at that time revealed a preserved ventricular size and systolic function with no significant valvular disease. Patient's troponin were mildly elevated on presentation. I do not have any other histories. His medication at home include amlodipine, Namenda, Lasix, Aricept, Sinemet, and Tenormin, in addition to aspirin. According to the nursing staff, he has a history of Parkinson's, hypertension, and dementia. PHYSICAL EXAMINATION: A 76-year-old male, nonresponsive. Pupils fixed, bilaterally not reactive to light and pinpoint. His blood pressure is running in the 70s with a heart rate in the 90s. NECK: No bruit. Lungs with bilateral rhonchi. HEART: Regular rate and rhythm, S1, S2. No S3 with systolic murmur. No diastolic murmur. ABDOMEN: Soft, positive bowel sounds. No organomegaly. EXTREMITIES: Bilateral discoloration. Decreased pulses. LAB DATA: Revealed a white blood cell of 23.1, hemoglobin of 14.4, BUN and creatinine 56 and 2.35, which is worse than it was in November. His troponin 0.893. NT proBNP 2350. His plasma lactic acid is 5.7, cholesterol 151, LDL of 91. His EKG reveals a sinus mechanism, normal axis and intervals, poor R-wave progression. His chest x-ray revealed perihilar infiltrate that could represent pneumonia. His pelvis x-ray showed a fracture of the left proximal femur. IMPRESSION: 1. Change in mental status, unresponsive, etiology unclear. 2. Minimal elevation of troponin. No evidence to suggest primary acute coronary artery syndrome. 3. History of dementia. 4. Fractured hip. 5. Possible sepsis and possible pneumonia. 6. History of Parkinson's disease. 7. History of hypertension. RECOMMENDATION: From the cardiac standpoint, the patient is not a candidate for heparin at this point. Will follow his renal function and function. Unfortunately, the prognosis is very poor. I will obtain echocardiogram with Doppler. Otherwise, will continue supportive care. Thank you for this consult. Will follow with you. MMCANDIDOL / IJN: [id number] /
[2017-09-07] MEDS ORDERED: LORazepam 2 MG/ML INJ IV PRN (15:22)
[2017-09-07] MEDS ORDERED: MORPHINE SULFATE (100 MG/2 ML) 100 MG in SODIUM CHLORIDE 0.9% 100 ML IV SCH (15:30)
[2017-09-07] MEDS ORDERED: SCOPOLAMINE 1.5MG/72HR PATCH TRANSDERM PRN (16:00)
[2017-09-07] MEDS: SODIUM CHLORIDE 0.9% 1,000 ML IV SCH (16:04)
--- NOTE | 2017-09-07 16:22 | P.CNPUL ---
History of Present Illness Consult date: 09/07/17 Requesting physician: Jalil Newsome Reason for consult: hypoxemia, pneumonia, abnormal CXR/CT, other Chief complaint: Altered mental status, fall at home, hypertension, hypoxic respiratory fail History of present illness: Mr. Beckham is a 76-year-old white male patient of Dr. Cast was brought to the ED this morning per EMS after being found unresponsive by his this morning. He has an underlying history of advanced Alzheimer's dementia, Parkinson's, and his baseline mentation is confusion. However last night patient was awake and able to respond, he was last seen well at 11:00 last night when his gave him a snack. Patient had a fall last night, did not appear to to have any injury. His did give him one [place] last night, in the emergency room he did receive 2 rounds of Narcan with no change in mentation. Patient has a chronic indwelling catheter, unclear for what reason. states he he is currently being treated for a UTI. Does have an underlying history of chronic kidney disease, congestive heart failure, atrial fibrillation, anemia of chronic disease, PVD, gait dysfunction. On arrival to the emergency department patient is completely unresponsive, to painful stimuli , not moving any extremities, his gaze is fixed, his pupils are pinpoint. CT of the brain showed age-related atrophy can chronic small vessel ischemic changes without acute intracranial process. Chest x-ray shows perihilar infiltrates that may reflect bilateral pneumonia versus developing pulmonary edema. X-ray of the pelvis shows an acute fracture of the left proximal femur transcervical on midportion of femoral neck. Left shoulder x-ray shows no acute fracture or dislocation. X-ray of the left hip shows impacted left femoral neck fracture. Patient is hypoxic, with O2 sat of 75% on 100% nonrebreather, initially was maintaining normal blood pressures but subsequently became profoundly hypotensive, with a blood pressure of 68/47, does have a low-grade temperature of 99.3F. Lab work showed evidence of leukocytosis of the WBC of 23.1, acute kidney injury with a creatinine of 2.35, lactic acidosis, with plasma lactic acid of 5.7, troponin leak of 0.893, and CK- MB of 3.9. ProBNP was elevated at 2350. Patient was given IV fluid boluses of 3 L of 0.9 normal saline in the emergency room. Upon arrival to the ICU, patient is profoundly hypotensive, was initiated on levo fed. Remains unresponsive, his pupils are pinpoint and fixed, his respirations are shallow, tachypneic and noisy, with a lot of upper airway congestion, rhonchi. Patient does not have a gag reflex. No response to painful stimuli. Was at first initiated on BiPAP support, blood gas was ordered. There was an extensive discussion with the patient's and 2 sons and grandchildren about patient's poor prognosis in view of the severity of his critical illness due to septic shock, ongoing unresponsiveness, acute on chronic kidney failure, acute hypoxic respiratory failure, multiple comorbidities, poor baseline functioning status. The and the family have clearly stated the patient never wanted intubation and mechanical ventilation, and life-support. The prognosis for survival is very poor, this was discussed with the family, at this point comfort care measures were recommended, the family understands and does not want to prolong the suffering. Patient will be placed on a simple oxygen mask, family is requesting measures to manage the patient's oral secretions and the pulmonary secretion rattling in the chest, and morphine drip. Review of Systems All systems: negative Constitutional: Denies chills, Denies fever Eyes: denies blurred vision, denies pain Ears, nose, mouth and throat: Denies headache, Denies sore throat Cardiovascular: Denies chest pain, Denies shortness of breath Respiratory: Denies cough Gastrointestinal: Denies abdominal pain, Denies diarrhea, Denies nausea, Denies vomiting Musculoskeletal: Reports gait dysfunction, Denies myalgias Integumentary: Reports unusual bruising, Denies pruritus, Denies rash Neurological: Reports change in mentation, Reports gait dysfunction, Denies numbness, Denies weakness Psychiatric: Denies anxiety, Denies depression Endocrine: Denies fatigue, Denies weight change Past Medical History Past Medical History: Atrial Fibrillation, Heart Failure, Dementia, Musculoskeletal Disorder, Neurologic Disorder, Renal Disease, Vascular Disorder Additional Past Medical History / Comment(s): Parkinsons, weakness, past constipation, current constipation which spouse has given different stool softner-still no BM in 4-5 days, chronic metabolic encephalopathy, has centeno catheter which spouse states was changed one week ago, BPH, normocytic anemia, PAD, CRD stage III, protein malnourishment. History of Any Multi-Drug Resistant Organisms: None Reported Past Surgical History: No Surgical Hx Reported Additional Past Surgical History / Comment(s): R shoulder sx, R hip surgery after fracture. Past Anesthesia/Blood Transfusion Reactions: No Reported Reaction Smoking Status: Never smoker - Past Family History Father Additional Family Medical History / Comment(s): Father had lupus and heart problems. Mother Family Medical History: Dementia Medications and Allergies Home Medications Medication Instructions Recorded Confirmed Type Memantine [Namenda] 10 mg PO BID 09/01/16 09/07/17 History Donepezil [Aricept] 10 mg PO HS 10/18/16 09/07/17 History Aspirin 81 mg PO DAILY #30 chew 12/16/16 09/07/17 Rx Atenolol [Tenormin] 25 mg PO DAILY 08/22/17 09/07/17 History Carbidopa-Levodopa 25-100 mg 1 tab PO TID 08/22/17 09/07/17 History [Sinemet 25-100] Furosemide [Lasix] 40 mg PO DAILY 08/22/17 09/07/17 History amLODIPine [Norvasc] 2.5 mg PO DAILY 08/22/17 09/07/17 History Docusate [Colace] 100 mg PO DAILY 09/07/17 09/07/17 History Furosemide [Lasix] 20 mg PO DAILY 09/07/17 09/07/17 History HYDROcodone/APAP 7.5-325MG [[place] 1 tab PO Q6HR PRN 09/07/17 09/07/17 History 7.5-325] Nystatin 100,000 Unit/gm Oint 1 applic TOPICAL BID 09/07/17 09/07/17 History [Mycostatin Oint] Sennosides [Senna] 8.6 mg PO HS 09/07/17 09/07/17 History Allergies Allergy/AdvReac Type Severity Reaction Status Date / Time No Known Allergies Allergy Verified 09/07/17 11:09 Physical Exam Vitals: Vital Signs Temp Pulse Resp BP Pulse Ox 09/07/17 14:15 99.3 F 95 18 93/52 79 L 09/07/17 14:14 95 18 93/52 79 L 09/07/17 13:33 95 18 93/52 79 L 09/07/17 12:27 24 09/07/17 11:15 110/55 86 L 09/07/17 10:44 99.3 F 90 18 102/57 75 L Intake and Output 09/07/17 09/07/17 09/07/17 06:59 14:59 22:59 Intake Total 800 Balance 800 Intake: Amount of Fluid Infused ( 800 ml) Other: Weight 85.91 kg Patient Weight 09/08/17 06:59 Weight 85.91 kg Exam reveals 76-year-old white male patient, unresponsive, with shallow tachypneic noisy respirations, and audible rattling in the chest and upper airways - Constitutional General appearance: average body habitus, severe distress - EENT Pupils are midposition and fixed pinpoint Eyes: abnormal pupil ENT: NA/AT Ears: bilateral: normal - Neck Neck: no lymphadenopathy Carotids: bilateral: upstroke normal Thyroid: bilateral: normal size - Respiratory Respiratory: bilateral: rhonchi - Cardiovascular Rhythm: regular Heart sounds: normal: S1, S2 ankle Peripheral Edema: absent: None dorsalis pedis Peripheral Pulses: bilateral: Absent radial pulse Peripheral Pulses: bilateral: Diminished - Gastrointestinal General gastrointestinal: no organomegaly, soft, no tenderness - Genitourinary Chronic indwelling catheter, with very small amount of cloudy yellow urine - Integumentary Patient is dusky and cyanotic, bilateral lower extremities have cyanotic discoloration Integumentary: normal turgor - Neurologic Patient is unresponsive to painful stimuli, gaze is fixed, pupils are midposition and fixed, pinpoint. No gag reflex was elicited, no cough reflex Neurologic: focal deficits - Musculoskeletal Patient is not able to move upper and lower extremities at this time, unresponsive - Psychiatric Unresponsive, unable to assess at this time Results - Laboratory Findings CBC and BMP: 09/07/17 10:53 09/07/17 10:53 PT/INR, D-dimer PT 10.0 sec (9.0-12.0) 09/07/17 10:53 INR 1.0 (<1.2) 09/07/17 10:53 Abnormal lab findings: Abnormal Labs 09/07/17 09/07/17 09/07/17 10:49 10:53 10:53 WBC 23.1 H Neutrophils # 20.7 H Monocytes # 1.1 H BUN 56 H Creatinine 2.35 H Glucose 165 H POC Glucose (mg/dL) 163 H Plasma Lactic Acid Ronald CK-MB (CK-2) Troponin I Total Protein 5.9 L 09/07/17 09/07/17 09/07/17 10:53 10:53 14:43 WBC Neutrophils # Monocytes # BUN Creatinine Glucose POC Glucose (mg/dL) 145 H Plasma Lactic Acid Ronald 5.7 H* CK-MB (CK-2) 3.9 H* Troponin I 0.893 H* Total Protein - Diagnostic Findings Chest x-ray: report reviewed Additional studies: Head and cervical spine CT, pelvis x-ray, shoulder x-ray, hip x-ray Assessment and Plan Plan: Assessment: #1. Acute alteration of mental status, present on admission. Patient was found unresponsive this morning at home, last seen well was last night at 11 PM by his . Suspect hypoxic-ischemic encephalopathy. CT brain and cervical spine showed no acute intracranial process, age-related atrophic and chronic small vessel ischemic changes. No evidence for acute cervical fracture #2. Acute hypoxic respiratory failure secondary to possible bilateral pneumonia or developing CHF #3. Acute septic shock, possibly related to an acute urinary tract infection. Chest x-ray shows evidence perihilar infiltrates that could reflect bilateral pneumonia. Patient presented with evidence of leukocytosis with [place] BC of 23.1, hypotension, altered mental status, acute kidney injury, lactic acidosis of 5.7, troponin leak of 0.893. Patient required fluid resuscitation with 3 L of 0.9 normal saline, and vasopressor support with levofed #4. Recent diagnosis with urinary tract infection, currently on antimicrobials. Patient has a chronic [place] #5. Fall at home, sustaining acute fracture of the left proximal femur #6. Acute on chronic kidney failure secondary to hypoperfusion and septic shock , patient has an underlying CKD stage III, as previously documented. Last creatinine from 08/22/2017 was 1.52. Currently is up to 2.35, patient is anuric. #7. Positive troponin of 0.893 and CK-MB of 3.9, in the setting of acute septic shock. Cardiology is consulted #8. History of advanced Alzheimer's dementia, with baseline cognitive limitation #9. Advanced Parkinson's disease #10. Hypertension #11. History of atrial fibrillation #12. History of congestive heart failure #13. Gait dysfunction Plan: Patient remains unresponsive to painful stimuli, no gag reflex, no cough reflex , remains profoundly hypotensive despite the fluid boluses. He was started on broad-spectrum antibiotics, blood cultures and urine cultures were ordered and sent. He is oxygenating very poorly even on 100% FiO2 per nonrebreather, his O2 saturations only around 76%. He remains anuric, his lactic acid was elevated at 5.7, he was given IV fluid boluses. His chest x-ray shows bilateral perihilar infiltrates that could represent bilateral pneumonia or CHF. Patient was initiated on BiPAP with pressures of 12 and 5 in the 100%, with only marginal improvement of his O2 saturation. He was initiated on Levophed. His prognosis is extremely poor, the family remains firm on no intubation and no life support per patient's wishes. Upon further discussion with the family, comfort care was recommended as one of the options versus proceeding with supportive care. Considering the severity of critical illness, evidence of multiorgan dysfunction, severe septic shock, advanced age, multiple underlying medical comorbidities, poor baseline functional status, comfort care was recommended. This was discussed with the patient's , 2 sons and 2 grandsons at the bedside, they would like to proceed with comfort care at this point, BiPAP was removed, patient was placed on a simple oxygen mask. Patient will be initiated on comfort care protocol. The plan of care was discussed and directed by the attending cake inspector Dr. Leary. I performed a history & physical examination of the patient and discussed their management with my nurse practitioner, Kerri Drake. I reviewed the nurse practitioner's note and agree with the documented findings and plan of care. Lung sounds are positive for scattered rhonchi. The findings and the impression was discussed with the patient. I attest to the documentation by the nurse practitioner. Time with Patient: Greater than 30
--- NOTE | 2017-09-07 17:07 | HP ---
HISTORY AND PHYSICAL DATE OF ADMISSION: 09/07/2017 PRESENTING COMPLAINT: Fall, short of breath. HISTORY OF PRESENTING COMPLAINT: This is a 76-year-old patient of visiting physician Dr. Cast whose chronic stable medical conditions include congestive heart failure, peripheral arterial disease, chronic kidney disease, uses a walker to get about, Parkinson's disease, dementia. History is obtained from the 2 sons at the bedside, [id number], and also the patient's joined. The patient at baseline uses a walker to get around. He has dementia though is able to recognize some family members. He is incontinent. He has been falling more frequently recently. He fell last night and was found on the floor, came in gurgling, short of breath. Patient was put on a Ventimask. Chest x-ray shows what appears to be aspiration pneumonia. The patient also was discovered to have a left hip fracture. The patient himself is not able to give any history any more; very lethargic. REVIEW OF SYSTEMS: Review of systems cannot be obtained from the patient. Additional information as per the family members as above. PAST MEDICAL HISTORY: 1. Congestive heart failure from diastolic dysfunction, EF 60%. 2. Anemia. 3. Peripheral arterial disease. 4. Chronic kidney disease, stage III. 5. Gait dysfunction; uses a walker. 6. Atrial fibrillation. 7. Parkinson's disease. 8. Dementia. 9. Chronic Butts catheter with BPH. 10.Chronic constipation. PAST SURGICAL HISTORY: 1. Right shoulder surgery. 2. Right hip surgery after fracture. SOCIAL HISTORY: Resides with his spouse. Uses a walker. VNA twice a week for showering. No smoking. No alcohol. FAMILY HISTORY: Father had lupus, heart problems, dementia. HOME MEDICATIONS: 1. Nystatin application topically b.i.d. 2. [place] 7.5 q.6 p.r.n. 3. Norvasc 2.5 p.o. daily. 4. Lasix 20 mg p.o. daily. 5. Colace 100 mg p.o. daily. 6. Sinemet 25/100 one tablet p.o. t.i.d. 7. Senna 8.6 p.o. at bedtime. 8. Lasix 40 mg p.o. daily. 9. Aricept 10 mg p.o. at bedtime. 10.Tenormin 25 p.o. daily. 11.Aspirin 81 mg p.o. daily. 12.Namenda 10 mg p.o. b.i.d. ALLERGIES: NONE. PHYSICAL EXAMINATION: VITAL SIGNS ON PRESENTATION: Temperature 99.3, pulse 90, respiration 18, blood pressure 102/57, pulse ox 75% on non-rebreather. GENERAL APPEARANCE: Lying in bed. Audible breath sounds with crackling. EYES: Pupils equal. Conjunctivae normal. HEENT: Dry mucous membrane. External appearance otherwise normal. NECK: JVD unable to assess. Mass not palpable. RESPIRATORY: Effort increased. Scattered crackles. CARDIOVASCULAR: Heart sounds muffled. Some edema. ABDOMEN: Soft, nontender. Liver and spleen not palpable. LYMPHATIC: No lymph node palpable in neck or axillae. PSYCHIATRY: Unable to assess. NEUROLOGICAL: Pupils are equal. The patient is moving his limbs but barely following commands. INVESTIGATIONS: White count 23.1, hemoglobin 14.4. Potassium 4.7. BUN 56, creatinine 2.35. The patient's BUN and creatinine were 37 and 1.52 on 08/22/2017. Troponin 0.893. Left hip x-ray shows a fracture to the femur. Chest x-ray shows bilateral infiltrates. ASSESSMENT: 1. Bilateral aspiration pneumonia in a patient with altered mental status who was found on the ground secondary to a fall causing acute hypoxic respiratory failure. 2. Acute left hip fracture secondary to fall. 3. Chronic congestive heart failure from diastolic dysfunction; ejection fraction 60%; probably from hypertensive heart disease. 4. Peripheral arterial disease. 5. Acute renal failure, possibly prerenal, with a jump of creatinine from 1.52, now to 2.35. 6. Chronic kidney disease, stage III, probably from nephrosclerosis. 7. Gait dysfunction; uses a walker. 8. Paroxysmal atrial fibrillation, currently in sinus rhythm. 9. Idiopathic Parkinson's disease associated with dementia. PLAN: Aspiration precautions are to be done. Patient is put on Ventimask. Levophed was ordered. Also patient was put on IV Zosyn. ER had already called Dr. Leary's team. The patient was admitted to the ICU. At this point, patient of course is going to be n.p.o. Consultations earlier were requested from Dr. Cagle from Orthopedics, Dr. Leary from Critical Care and Dr. Baltazar from Cardiology. ADVANCED CARE PLANNING: I met with the 2 sons, the [id number] and the mother. Patient is already DO NOT RESUSCITATE. I did explain to them patient's overall very poor prognosis. They understand. I also spoke to his at length. She initially wanted to take the patient home. I explained to her that he is doing very poorly and his quality of life is very poor. Other family members do understand the same. They had even actually thought of hospice at home. The patient does use VNA at home. The patient will be admitted for supportive care and we will possibly do an NG tube for medications. The prognosis remains poor. Advanced care planning in addition to H&P was done for about 20 to 25 minutes. OCTAVIO / DONATON: [id number] /
[2017-09-07 18:54] VITALS: BP 54/39; PULSE 0; RESP 0
[2017-09-07] MEDS ORDERED: PIPERACILLIN-TAZOBACTAM 3.375 GM in DEXTROSE/WATER 1 50ML.BAG IVPB SCH (20:00)
--- NOTE | 2017-09-09 06:57 | DS ---
DISCHARGE SUMMARY DATE OF ADMISSION: 09/07/17. DATE PATIENT : 09/07/17. CAUSE OF : 1. Bilateral aspiration pneumonia. 2. medical fractures, acute left hip fracture secondary to fall. 3. Chronic congestive heart failure from diastolic dysfunction. Ejection fraction 60% from hypertensive heart disease. 4. Peripheral artery disease. 5. Acute renal failure likely prerenal. Creatinine 1.52-2.35. 6. Chronic kidney disease stage III probably from nephrosclerosis. 7. Gait dysfunction uses a walker. 8. Paroxysmal atrial fibrillation. 9. Idiopathic Parkinson disease associated with dementia. HOSPITAL COURSE: This patient with a poor quality of life, presented with fall, fracture, aspirated, went into respiratory failure, had a Ventimask. Patient continued to do very poorly. Did talk to patient's family and eventually patient was made comfort measures appropriately and medications up to the underlying problem. MMODL / IJN: [id number] /
[2017-09-09] MEDS ORDERED: LEVOFLOXACIN 750MG-D5W PMX 750 MG in DEXTROSE/WATER 1 150ML.BAG IVPB SCH (09:00)
--- NOTE | 2017-09-11 08:46 | ECHOF ---
Referral Reason:htn MEASUREMENTS -------- HEIGHT: 180.3 cm WEIGHT: 85.7 kg BP: IVSd: 1.4 cm (0.6 - 1.1) LVIDd: 2.9 cm (3.9 - 5.3) LVPWd: 1.4 cm (0.6 - 1.1) IVSs: 1.7 cm LVIDs: 2.0 cm LVPWs: 1.9 cm MV E Jann: 0.41 m/s MV DecT: 203 ms MV A Jann: 0.39 m/s MV E/A Ratio: 1.06 AV maxP.50 mmHg AV meanP.91 mmHg RAP: 5.00 mmHg RVSP: 26.73 mmHg FINDINGS -------- Sinus rhythm. This was a technically difficult study with suboptimal views. Pt unable to turn due to hip fx. St udy taken from subcoastals The left ventricular size is normal. There is moderate concentric left ventricular hypertrophy. O verall left ventricular systolic function is normal with, an EF between 55 - 60 %. RV Promident The left atrium is normal in size. The right atrium is normal in size. Aortic valve is trileaflet and is mildly thickened. The mitral valve leaflets are mildly thickened. There is trace mitral regurgitation. Mild tricuspid regurgitation present. The right ventricular systolic pressure, as measured by Doppl er, is 26.73mmHg. The pulmonic valve was not well visualized. The pericardium is normal. CONCLUSIONS -------- 1. Sinus rhythm. 2. This was a technically difficult study with suboptimal views. 3. Pt unable to turn due to hip fx. 4. Study taken from subcoastals 5. The left ventricular size is normal. 6. There is moderate concentric left ventricular hypertrophy. 7. Overall left ventricular systolic function is normal with, an EF between 55 - 60 %. 8. RV Promident 9. The left atrium is normal in size. 10. The right atrium is normal in size. 11. Aortic valve is trileaflet and is mildly thickened. 12. The mitral valve leaflets are mildly thickened. 13. There is trace mitral regurgitation. 14. Mild tricuspid regurgitation present. 15. The right ventricular systolic pressure, as measured by Doppler, is 26.73mmHg. 16. The pulmonic valve was not well visualized. 17. The pericardium is normal. HEAVY FORGER: Jazmyn Arteaga RDCS
--- NOTE | 2017-09-11 12:01 | CDI ---
Last Revision, July 2017 Documentation Clarification Form Date: 09/11/2017 11:42:00 AM From: Yeny Valdez Admit Date: 09/07/2017 1:12:00 PM Patient Name: Ashutosh Beckham Visit Number: [id number] Discharge Date: 09/07/17 ATTENTION: The Clinical Documentation Specialists (CDI) and [facility] Coding Staff appreciate your assistance in clarifying documentation. Please respond to the clarification below the line at the bottom and electronically sign. The CDI & [facility] [employer] Coding staff will review the response and follow-up if needed. Please note: Queries are made part of the Legal Health Record. If you have any questions, please contact the author of this message via ITS. Dr. Jalil Newsome Conflicting documentation has been found in the medical record. ED documents septic shock. Dr Jonah Cedeno's consults documents "possble sepsis". History/Risk Factors: Aspiration pneumonia, acute renal failure, hypertensive heart disease w chr systolic heart failure and stage III CKD, paroxysmal atrial fibrillation Clinical Indicators: lactic acid 5.7, lactic ac sepsis Rflx - Y, WBC - 23.1, neutrophils 20.7 Treatment: IV Zoysn, IV Levaquin, Sodium chloride .09% 1000ml IV, Bipap In your opinion what is the most clinically appropriate diagnosis for this patient? Sepsis ruled in Sepsis ruled out Aspiration pneumonia Other explanation of clinical findings Unable to determine (no explanation for clinical findings) If you have a question about this query, please contact Patricia Wilkinson, Weather Analyst, Kavitha Gayle at [phone] between 8am and 5pm. Please continue to document in your progress notes and discharge summary in order to capture severity of illness and risk of mortality. Include clinical findings that support your diagnosis. _dc diagnosis amended MTDD
--- NOTE | 2017-09-17 14:14 | DS ---
DISCHARGE SUMMARY ADDENDUM: DATE OF ADMISSION: 09/07/2017. DATE EXPIRATION: 09/07/2017. CAUSE OF : Bilateral aspiration pneumonia. ADDITIONAL DIAGNOSES: 1. Bilateral aspiration pneumonia likely causing sepsis present on admission. MMODL / IJN: [id number] /
== END 2017-09-07 21:42 | disposition expired | DRG 871 ==
LOC: EC 10:42 → 6ICU 13:12
PROVIDERS: ADMIT Hospitalist; ATTEND Hospitalist
DX: A41.9 Sepsis, unspecified organism (principal); J69.0 Pneumonitis due to inhalation of food and vomit; J96.01 Acute respiratory failure with hypoxia; R65.21 Severe sepsis with septic shock; N17.9 Acute kidney failure, unspecified; E87.2 Acidosis; E46 Unspecified protein-calorie malnutrition; I48.0 Paroxysmal atrial fibrillation; S72.032A Displaced midcervical fracture of left femur, initial encounter for closed fracture; I50.32 Chronic diastolic (congestive) heart failure; I13.0 Hypertensive heart and chronic kidney disease with heart failure and stage 1 through stage 4 chronic kidney disease, or unspecified chronic kidney disease; N39.0 Urinary tract infection, site not specified; Z66 Do not resuscitate; Z51.5 Encounter for palliative care; N18.3 Chronic kidney disease, stage 3 (moderate); G30.9 Alzheimer's disease, unspecified; D63.8 Anemia in other chronic diseases classified elsewhere; F02.80 Dementia in other diseases classified elsewhere, unspecified severity, without behavioral disturbance, psychotic disturbance, mood disturbance, and anxiety; G31.83 Neurocognitive disorder with Lewy bodies; I73.9 Peripheral vascular disease, unspecified; R26.9 Unspecified abnormalities of gait and mobility; R29.6 Repeated falls; K59.09 Other constipation; N40.1 Benign prostatic hyperplasia with lower urinary tract symptoms; N39.498 Other specified urinary incontinence; Z79.82 Long term (current) use of aspirin; Z87.891 Personal history of nicotine dependence; Z79.899 Other long term (current) drug therapy; W19.XXXA Unspecified fall, initial encounter; Y92.009 Unspecified place in unspecified non-institutional (private) residence as the place of occurrence of the external cause
CPT/HCPCS: 36415; 70450; 71045; 72125; 72170; 73502; 80053; 82550; 82553; 83605; 83880; 84484; 85025; 85610; 85730; 87040; 93005; 93306; 94660; 96360; 96365; 99291